=== PATIENT | female | born 1945 | race Two or more races ===

== ENCOUNTER → 2016-10-27 | Outpatient (REF) | payer MEDICARE ==
[~2016-10-27] MED LIST: ATEN25TA PO; GLYB5TA PO; HYDR25TAB PO; LISI-538 PO; METF500T PO; VITA100066 PO
[2016-10-27 19:13] LABS: ALBUMIN 3.5 GM/DL (3.2-5.2); ALBUMIN/GLOBULIN RATIO 1.13 (1.00-1.93); BILIRUBIN,TOTAL 1.5 MG/DL (0.2-1.0); CALCIUM LEVEL 8.6 MG/DL (8.8-10.2); CREATININE FOR GFR 1.13 MG/DL (0.55-1.02); GLOMERULAR FILTRATION RATE 50.7 (>39); POTASSIUM SERUM 4.8 MEQ/L (3.5-5.1); TOTAL PROTEIN 6.6 GM/DL (6.4-8.2)
== END ==
LOC: M LAB REF 18:26
PROVIDERS: ATTEND Emergency Medicine
DX: E78.2 Mixed hyperlipidemia (principal); E55.9 Vitamin D deficiency, unspecified; I10 Essential (primary) hypertension; E11.9 Type 2 diabetes mellitus without complications

== ENCOUNTER → 2017-05-16 | Outpatient (REF) | payer MEDICARE ==
[~2017-05-16] MED LIST changes: -METF500T PO; +METF500T13 PO
[2017-05-16 20:59] LABS: MEAN CORPUSCULAR HEMOGLOBIN 30.7 pg (27.0-33.0); MEAN CORPUSCULAR VOLUME 87.6 fl (80.0-96.0); RED CELL DISTRIBUTION WIDTH 12.6 % (11.5-14.5); WHITE BLOOD COUNT 6.2 10^3/uL (4.0-10.0)
[2017-05-16 21:18] LABS: ERYTHROCYTE SEDIMENTATION RATE 21 mm/hr (0-30)
[2017-05-16 21:38] LABS: PLATELET COUNT, AUTOMATED 81 10^3/uL (150-450)
[2017-05-16 21:39] LABS: IMMATURE PLATELET FRACTION % 11.2 % (0.0-9.6)
== END ==
LOC: M LAB REF 17:49
PROVIDERS: ATTEND Surgery
DX: D04.4 Carcinoma in situ of skin of scalp and neck (principal); D23.72 Other benign neoplasm of skin of left lower limb, including hip; I87.312 Chronic venous hypertension (idiopathic) with ulcer of left lower extremity; L97.822 Non-pressure chronic ulcer of other part of left lower leg with fat layer exposed; Z79.4 Long term (current) use of insulin; Z79.899 Other long term (current) drug therapy

== ENCOUNTER → 2017-11-16 | Outpatient (REF) | payer MEDICARE ==
[2017-11-16 12:29] LABS: BASO % 0.7 % (0.0-1.0); EOS # 0.3 10^3/uL (0.0-0.50); EOS % 5.7 % (0.0-3.0); HEMATOCRIT 39.4 % (36.0-47.0); HEMOGLOBIN 13.9 g/dl (12.0-15.5); IMMATURE GRANULOCYTE % 0.4 % (0-3.0); LYMPH # 1.3 10^3/uL (1.5-4.5); LYMPH % 24.5 % (24.0-44.0); MEAN CORPUSCULAR HEMOGLOBIN 30.6 pg (27.0-33.0); MEAN CORPUSCULAR HGB CONC 35.3 g/dl (32.0-36.5); MEAN CORPUSCULAR VOLUME 86.8 fl (80.0-96.0); MONO # 0.4 10^3/uL (0.0-0.8); MONO % 7.7 % (0.0-5.0); NEUTROPHILS # 3.3 10^3/uL (1.8-7.7); RED BLOOD COUNT 4.54 10^6/uL (4.00-5.40); RED CELL DISTRIBUTION WIDTH 12.3 % (11.5-14.5); WHITE BLOOD COUNT 5.4 10^3/uL (4.0-10.0)
[2017-11-16 12:32] LABS: IMMATURE PLATELET FRACTION % 11.5 % (0.0-9.6); PLATELET COUNT, AUTOMATED 71 10^3/uL (150-450)
[2017-11-16 12:57] LABS: TOTAL 25(OH) VITAMIN D 30.9 NG/ML (30.0-100.0)
[2017-11-16 13:03] LABS: ALBUMIN 3.7 GM/DL (3.2-5.2); ALBUMIN/GLOBULIN RATIO 1.09 (1.00-1.93); ALKALINE PHOSPHATASE 226 U/L (45-117); ALT/SGPT 35 U/L (12-78); ANION GAP 8 MEQ/L (8-16); AST/SGOT 25 U/L (7-37); BILIRUBIN,TOTAL 1.2 MG/DL (0.2-1.0); BLOOD UREA NITROGEN 22 MG/DL (7-18); CARBON DIOXIDE LEVEL 28 MEQ/L (21-32); CHLORIDE LEVEL 101 MEQ/L (98-107); CHOLESTEROL LEVEL 114 MG/DL (<200); CHOLESTEROL RISK RATIO 4.384 (<5); CREATININE FOR GFR 1.29 MG/DL (0.55-1.30); FREE T4 1.27 NG/DL (0.76-1.46); GLOMERULAR FILTRATION RATE 43.2 (>39); GLUCOSE, FASTING 342 MG/DL (70-100); HDL CHOLESTEROL 26 MG/DL (>40); LDL CHOLESTEROL 41.6 MG/DL (<100); NON-HDL-C 88 MG/DL; POTASSIUM SERUM 4.3 MEQ/L (3.5-5.1); SODIUM LEVEL 137 MEQ/L (136-145); TOTAL PROTEIN 7.1 GM/DL (6.4-8.2); TRIGLYCERIDES LEVEL 232 MG/DL (<150)
[2017-11-16 13:31] LABS: MALB URINE SIEMENS 53.1 MG/L; MAU/CREAT RATIO 53.1 MCG/MG (0.0-30.0)
[2017-11-16 14:08] LABS: ESTIMATED AVERAGE GLUCOSE 318 MG/DL (60-110); HEMOGLOBIN A1c 12.7 %
== END ==
LOC: M SFHCADAM 08:07
DX: N18.3 Chronic kidney disease, stage 3 (moderate) (principal); E78.1 Pure hyperglyceridemia; E11.22 Type 2 diabetes mellitus with diabetic chronic kidney disease
CPT/HCPCS: 84443

== ENCOUNTER → 2018-03-13 | Outpatient (CLI) | payer MEDICARE | LOC: M ADAMS 11:00 | DX: M79.671 Pain in right foot (principal) | CPT/HCPCS: 73630 ==

== ENCOUNTER → 2018-07-19 | Outpatient (CLI) | payer MEDICARE ==
--- NOTE | 2018-07-19 20:39 | REP ---
Clinical: Chronic renal disease. Technique: Real time small scale ultrasound examination using curved array transducer. Findings: Bilateral kidneys are normal in contour, size, echogenicity, and reniform shape out hydronephrosis, nephrolithiasis, cystic or renal mass lesion. Right kidney measures 10.7 x 4.6 x 3.6 cm. Left kidney measures 10.4 x 3.8 x 4.1 cm. Bladder is incompletely distended and grossly normal in appearance. Incidental images of the liver demonstrate heterogeneous echotexture with small scattered hypoechoic mass lesions, ascites, and mildly enlarged spleen. Impression: 1. Normal appearance to the kidneys. 2. Incidental upper abdominal findings including subtle hypoechoic mass lesions within the liver, trace ascites, and splenomegaly. Electronically Signed by Koby Chris MD 07/19/2018 08:31 P
== END ==
LOC: M RAD 12:07
PROVIDERS: ATTEND Physician Assistant Medical
DX: N18.3 Chronic kidney disease, stage 3 (moderate) (principal); K76.9 Liver disease, unspecified; R18.8 Other ascites; R16.1 Splenomegaly, not elsewhere classified

== ENCOUNTER 2018-07-28 20:30 | Observation (INO) | payer MEDICARE ==
[~2018-07-28] VITALS: Ht 154.9 cm; Wt 63.6 kg
[2018-07-28 21:17] LABS: BASO % 0.7 % (0.0-1.0); EOS # 0.4 10^3/uL (0.0-0.50); EOS % 6.2 % (0.0-3.0); HEMATOCRIT 41.8 % (36.0-47.0); LYMPH # 1.4 10^3/uL (1.5-4.5); LYMPH % 23.8 % (24.0-44.0); MEAN CORPUSCULAR HEMOGLOBIN 30.7 pg (27.0-33.0); MEAN CORPUSCULAR HGB CONC 35.9 g/dl (32.0-36.5); MEAN CORPUSCULAR VOLUME 85.7 fl (80.0-96.0); MONO # 0.5 10^3/uL (0.0-0.8); MONO % 8.8 % (0.0-5.0); NEUTROPHILS # 3.6 10^3/uL (1.8-7.7); NEUTROPHILS % 60.2 % (36.0-66.0); RED BLOOD COUNT 4.88 10^6/uL (4.00-5.40)
[2018-07-28 21:19] LABS: PLATELET COUNT, AUTOMATED 70 10^3/uL (150-450)
[2018-07-28] MEDS ORDERED: BASA100I SC (21:23)
[2018-07-28] MEDS ORDERED: ATEN100T PO (21:23)
[2018-07-28] MEDS ORDERED: VITA1CAP25 PO (21:23)
[2018-07-28] MEDS ORDERED: METF500T13 PO (21:23)
[2018-07-28] MEDS ORDERED: GLIP10TA6 PO (21:23)
[2018-07-28] MEDS ORDERED: LISI20TA PO (21:23)
[2018-07-28] MEDS ORDERED: hydrALAZINE INJ 20 MG/ML VIAL IV ONE (21:45)
[2018-07-28 21:46] LABS: BLOOD UREA NITROGEN 22 MG/DL (7-18); CALCIUM LEVEL 8.7 MG/DL (8.8-10.2); CARBON DIOXIDE LEVEL 25 MEQ/L (21-32); CHLORIDE LEVEL 99 MEQ/L (98-107); CPK CREATINE PHOSPHOKINASE 103 U/L (26-192); CREATININE FOR GFR 1.21 MG/DL (0.55-1.30); GLOMERULAR FILTRATION RATE 46.6 (>39); GLUCOSE, FASTING 298 MG/DL (70-100); MB/CK RELATIVE INDEX 2.23 (< OR =4); POTASSIUM SERUM 4.4 MEQ/L (3.5-5.1); SODIUM LEVEL 135 MEQ/L (136-145); TROPONIN I < 0.02 NG/ML (< 0.10)
[2018-07-28] MEDS ORDERED: GLUCAGON FOR INJ 1 MG VIAL (J1610) SC PRN (23:00)
[2018-07-28] MEDS ORDERED: NS 500 ML IV SCH (23:00)
[2018-07-28] MEDS ORDERED: GLUCOSE 4 GM CHEW TABLET PO PRN (23:00)
[2018-07-28] MEDS ORDERED: DEXTROSE 50% 50 ML SYRINGE IV PRN (23:00)
[2018-07-28] MEDS ORDERED: amLODIPine 5 MG TAB PO SCH (23:00)
[2018-07-28 23:28] LABS: HEMOGLOBIN A1c 12.5 %
[2018-07-28] MEDS: LEVEMIR (INSULIN DETEMIR) 1 UNITS/0.01ML SC SCH (23:59)
--- NOTE | 2018-07-29 00:04 | HPE ---
DATE OF ADMISSION: 07/28/2018 CHIEF COMPLAINT: Episodic palpitations, worsening over the past 2 weeks. HISTORY OF THE PRESENT ILLNESS: The patient is a 72-year-old female. She has a significant past medical history of diabetes, insulin-dependent diabetes, hypertension, chronic kidney disease stage III. She states that she was recently diagnosed with a liver lesion. She has had chronic thrombocytopenia for some time. States that she was scheduled to have an ultrasound of the liver upcoming. She presented to the emergency room with episodic palpitations over the past several months. She states they have been more pronounced and worsened. One episode she had 2 weeks, which was more pronounced, lasted for several hours and one episode tonight. The palpitations are not associated with exertion or rest. They can happen spontaneously at rest. They resolve on their own. She is not able to pinpoint any triggers, relieving or exacerbating factors. She denies shortness of breath. She denies chest pain. She denies cough, fevers, chills, abdominal pain, constipation, diarrhea. She denies any skin changes, temperature intolerance, changes in her hair, changes in her weight, no diarrhea. Notably in the patient's history, about a month and a half ago she discontinued her medications. She neglected to refill all her medications. She states 2 weeks ago when the palpitations started getting worse, she reached out to her primary care provider. Dr. Campo, who is also in the same group, subsequently called her medication into the pharmacy. The patient states she has been taking her medications for the past 2 weeks, and she has been compliant. However, today, again, she experienced palpitations. Her exercise tolerance, she says, is unchanged. She is able to ambulate without any limitations. She denies any orthopnea. There is no paroxysmal nocturnal dyspnea (PND). No peripheral edema. She does have uncontrolled hypertension; blood pressure was 203 systolic on presentation to the emergency room. She states it is always high at home, though she endorses compliance with her medications over the past 2 weeks. Her glucose on the BMP is also 298, again she states she is compliant with her diabetic medication. In the ER, she was noted to have a left bundle branch block. No prior EKG for comparison. She was noted to be hypertensive, 203 systolic. She was given hydralazine push with improvement in her blood pressure. PAST MEDICAL HISTORY: See history of the present illness. PAST SURGICAL HISTORY: She had carpal tunnel syndrome, hysterectomy. HOME MEDICATIONS: Atenolol, lisinopril, hydrochlorothiazide, glipizide, metformin, vitamin D, Basaglar 10 units. SOCIAL HISTORY: Former smoker. Denies alcohol or illicit drug use. REVIEW OF SYSTEMS: A 12-point review of systems was completed, all of which were negative except those listed in the history of the present illness. ALLERGIES: No known drug allergies. FAMILY HISTORY: Noncontributory. VITAL ON ADMISSION: Temperature 98, pulse is 76, respirations are 16. Initial blood pressure 203/84, saturating at 97% on room air. After a push of hydralazine, blood pressure is now in the 160s over 70s. PHYSICAL EXAM: General: She is well nourished, in no apparent distress. Head is normocephalic, atraumatic Eyes: Extraocular movements are intact. Pupils equal, round, reactive to light. Neck is supple. No jugular venous pressure (JVP). Lungs: Clear to auscultation. No crackles, wheezes, rales, or rhonchi. Cardiovascular: Regular rate and rhythm. Normal S1, S2. No murmurs, gallops, or rubs. Abdomen: Soft, nontender, nondistended. Positive bowel sounds. No rebound, no guarding. Extremities: No pitting edema or calf tenderness. Skin: Intact. No rashes, lesions, or breakdown. Neurological: Alert and oriented times three. No focal deficits. LABS AND IMAGING: White count of 6, hemoglobin and hematocrit of 15 over 41, platelet count of 70. She does have a history of thrombocytopenia. The patient states that she does also have a liver lesion which she was recently told about. BMP shows a potassium of 4, BUN and creatinine of 21 over 1.21. Baseline creatinine of 1. Troponin is negative. EKG shows a left bundle branch block. No prior EKG for comparison. Chest x-ray is unremarkable. ASSESSMENT AND PLAN: Palpitations, possibly secondary to hyperglycemia and possibly dehydration. Will rule out pulmonary embolism (PE). Will rule out thyroid dysfunction. Will keep the patient on telemetry to assess for any arrhythmia. Will re-cycle the troponins. Will repeat the EKG. Will get an echocardiogram to assess for structural heart disease. She also has a left bundle branch block, which all intents and purposes is a new left bundle branch block, but there are no prior EKGs for comparison. However, initial troponin was negative. For hypertensive urgency, she was given 5 mg of hydralazine in the emergency room. Will continue her home medications, adjust as necessary. Vital signs as per protocol. Echocardiogram to be obtained to assess for structural heart disease. For thrombocytopenia, the patient has no history of alcohol abuse. There is no recent infection to suggest that this is infectious mediated or medication mediated. She states that she was recently told by her primary care provider (PCP) that has a mass on the liver, and she was scheduled for an outpatient followup ultrasound. I am unclear as to how she discerned there was a mass on the liver, but will get a right upper quadrant ultrasound, will get liver function tests (LFTs) and will continue to trend platelet count and the liver function test if it is noted to be abnormal. Diabetes. Will send an A1c. Will hold oral hypoglycemics. Will place on sliding scale. Will continue a long-acting insulin. SUPPORTIVE: - Deep vein thrombosis (DVT) prophylaxis. Sequential compression devices (SCDs). - Gastrointestinal (GI) prophylaxis. Not indicated. - Diet: Cardiac, diabetic diet.
[2018-07-29 00:23] LABS: ALBUMIN 3.8 GM/DL (3.2-5.2); ALT/SGPT 35 U/L (12-78); BILIRUBIN,DIRECT 0.2 MG/DL (0.0-0.2); MAGNESIUM LEVEL 1.6 MG/DL (1.8-2.4); TOTAL PROTEIN 7.3 GM/DL (6.4-8.2)
[2018-07-29 03:22] LABS: HEMOGLOBIN 13.3 g/dl (12.0-15.5); MEAN CORPUSCULAR HEMOGLOBIN 30.6 pg (27.0-33.0); MEAN CORPUSCULAR HGB CONC 35.9 g/dl (32.0-36.5); MEAN CORPUSCULAR VOLUME 85.1 fl (80.0-96.0); RED BLOOD COUNT 4.35 10^6/uL (4.00-5.40); WHITE BLOOD COUNT 6.3 10^3/uL (4.0-10.0)
[2018-07-29 03:26] LABS: PLATELET COUNT, AUTOMATED 54 10^3/uL (150-450)
[2018-07-29 03:46] LABS: CALCIUM LEVEL 8.4 MG/DL (8.8-10.2); CREATININE FOR GFR 1.09 MG/DL (0.55-1.30); FREE T4 1.21 NG/DL (0.76-1.46); GLOMERULAR FILTRATION RATE 52.5 (>39); THYROID STIMULATING HORMONE 3.27 uIU/ML (0.358-3.740)
[2018-07-29] MEDS ORDERED: HEPARIN SOD (PORCINE) 5000 UNITS/ML VIAL SC SCH (06:00)
--- NOTE | 2018-07-29 07:25 | ECGEPIP ---
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
[2018-07-29] MEDS ORDERED: CALCIUM GLUCONATE 1,000 MG in D5W MINI-BAG PLUS 100 ML IV ONE (08:00)
--- NOTE | 2018-07-29 08:11 | REP ---
CHEST PA AND LATERAL: 07/28/2018. Clinical history: Chest pain. Findings: There are no prior studies. Two-views show the lung barragan well inflated. There is no pleural effusion or lateral pleural thickening. I see no apical pneumothorax and no pneumomediastinum. Some subtle infrahilar density on the right may reflect some subsegmental atelectasis or early infiltrate. I see no dense consolidation with air bronchograms. No pulmonary nodules or parenchymal mass is evident. Heart is not enlarged. Aorta and airway intact. There is no vascular redistribution. Bony thorax shows no compression deformity, although there are degenerative changes throughout the mid and lower thoracic spine. No free air under the diaphragm. Impression: 1. Subtle increased patchy density infrahilar right lower lung zone. No dense consolidation, effusion, pulmonary nodule or parenchymal mass. 2. Heart not enlarged. There is no vascular redistribution or edema. Aorta and airway intact. 3. Some degenerative changes in the spine without acute compression deformity or destructive lesion. There are old healed and remodeled left lateral rib fractures of the seventh and eighth ribs. Electronically Signed by Raymundo Esparza MD 07/29/2018 09:28 A
--- NOTE | 2018-07-29 08:19 | REP ---
HEPATIC ULTRASOUND: 07/28/2018. Comparison: 03/23/2012. Clinical history: Low platelet count. Findings: The liver shows diffuse coarsening of echotexture with lobulated contours and somewhat hyperechoic appearance overall consistent with fatty infiltration and chronic liver disease. No intrahepatic biliary dilatation, hepatic mass, cyst or perihepatic ascites. Gallbladder shows normal wall thickness and no stone, sludge or pericholecystic fluid. No sonographic Vazquez sign. Common duct is 4.9 mm without filling defect. Pancreas is limited in evaluation due to extensive gas shadowing. Small portions seen were grossly unremarkable. Right kidney is 10.9 x 5.5 x 4 cm and without hydronephrosis or stone. Impression: 1. Findings suggest chronic liver disease with diffuse coarsened echotexture, overall increased echogenicity consistent with some fatty infiltration and lobulated hepatic contours with slightly prominent left hepatic lobe. No cyst or solid mass. 2. No intrahepatic biliary dilatation, the common duct 4.9 mm, normal. 3. Gallbladder without stone, mass, wall thickening or pericholecystic fluid. No sonographic Vazquez sign. 4. Only limited visualization of pancreas. Right kidney without acute finding. Electronically Signed by Raymundo Esparza MD 07/29/2018 09:29 A
[2018-07-29] MEDS: HumaLOG INSULIN (NovoLOG) PER UNIT SC SCH ×3 (08:22→17:22)
[2018-07-29] MEDS: LISINOPRIL 40 MG TAB PO SCH (08:23)
[2018-07-29] MEDS: ATENOLOL 50 MG TAB PO SCH (08:23)
[2018-07-29] MEDS: hydroCHLOROthiazide 25 MG TAB PO SCH (08:23)
[2018-07-29 13:55] VITALS: BP 177/81
--- NOTE | 2018-07-29 17:51 | ECHO ---
DATE OF PROCEDURE: 07/29/2018 HEIGHT: 154 cm WEIGHT: 64 kg REFERRING PHYSICIAN: Dr. Stahl Tuesday INDICATION: Abnormal ECG. 2D MEASUREMENTS: Aortic annulus: 1.8 cm Aortic root: 2.9 cm Left atrium: 4.3 cm Ventricular septum: 0.99 cm Posterior wall: 0.97 cm Left ventricle diastole: 5.1 cm Left atrial volume index: 39.8 Inferior vena cava: 1.8 cm DOPPLER MEASUREMENTS: Aortic valve velocity: 98.1 cm/s LVOT velocity: 92.5 cm/s LVOT VTI: 24.9 cm Mitral E velocity: 89.7 cm/s Mitral A velocity: 127 cm/s Mitral deceleration time: 296 ms Very mild tricuspid regurgitation. Estimated right ventricle systolic pressure: 30 mmHg assuming a pressure of 5 mmHg. Pulmonary artery systolic pressure: 21 mmHg. MITRAL ANNULAR TISSUE DOPPLER: E prime septal: 3.6 cm/s E prime lateral: 6.0 cm/s DESCRIPTION: Rhythm was sinus. Image quality was fair. No pericardial effusion. Some PVCs. CONCLUSIONS: 1. Normal left ventricle internal dimensions and wall thickness. Normal regional left ventricular (LV) wall motion and wall thickening. Normal LV systolic function. Left ventricular ejection fraction (LVEF) 65-70% by visual estimate. Grade 1 LV diastolic dysfunction. 2. Moderate left atrial dilatation. 3. Moderate aortic valve sclerosis of a 3-cusp aortic valve. No aortic stenosis or regurgitation. 4. Moderate mitral annular calcification. No mitral stenosis or mitral regurgitation. 5. Otherwise normal appearing echocardiogram Doppler findings.
[2018-07-29] MEDS: metFORMIN (GLUCOPHAGE) 1000 MG TABLET PO SCH (18:17)
--- NOTE | 2018-07-29 19:33 | ECGEPIP ---
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
[2018-07-29 22:00] VITALS: BP 128/65
[2018-07-29] MEDS: LEVEMIR (INSULIN DETEMIR) 1 UNITS/0.01ML SC SCH (22:44)
[2018-07-30 02:00] VITALS: BP 117/57
[2018-07-30 06:00] VITALS: BP 136/65
[2018-07-30 07:00] LABS: HEMATOCRIT 38.9 % (36.0-47.0); HEMOGLOBIN 13.7 g/dl (12.0-15.5); MEAN CORPUSCULAR HEMOGLOBIN 30.6 pg (27.0-33.0); MEAN CORPUSCULAR HGB CONC 35.2 g/dl (32.0-36.5); RED BLOOD COUNT 4.47 10^6/uL (4.00-5.40); WHITE BLOOD COUNT 6.3 10^3/uL (4.0-10.0)
[2018-07-30 07:06] LABS: PLATELET COUNT, AUTOMATED 69 10^3/uL (150-450)
[2018-07-30 07:13] LABS: CALCIUM LEVEL 9.2 MG/DL (8.8-10.2); CREATININE FOR GFR 1.08 MG/DL (0.55-1.30); GLOMERULAR FILTRATION RATE 53.1 (>39); POTASSIUM SERUM 3.9 MEQ/L (3.5-5.1)
[2018-07-30] MEDS ORDERED: glipiZIDE XL 5 MG TABCR PO SCH (07:30)
--- NOTE | 2018-07-30 08:57 | IPN ---
DATE OF VISIT: 07/29/2018 This patient was admitted last night by the hospitalist. She presented to the hospital because of pressure in her chest and pounding palpitations. She is not really short of breath. She was anxious. Was not coughing or having any flu-like symptoms. She is a diabetic. She is hypertensive. She was off her medications for several months because she did not feel like renewing them. Her last office visit prior to 2 weeks ago was in November, at which time her physician wished her to go on an insulin product because her diabetes was uncontrolled with a hemoglobin A1c of 12.7%. However, her insurance would not cover treat Chris. She was somewhat lost to followup for the next 7 months. She reports that this week or less than 2 weeks ago, she restarted her atenolol, her glipizide, her metformin but only at 1000 mg once a day, and her glipizide, her lisinopril, hydrochlorothiazide. So it is a little bit surprising that her blood pressure was in the 200s last night when she got admitted. At this time, she is feeling better, chest pressure is gone. She is currently receiving atenolol 100 mg once a day, lisinopril 40 mg once a day, hydrochlorothiazide 25 mg once a day. She is getting lispro insulin sliding scale and Levemir insulin 10 units at bedtime. On examination, her current blood pressure is 177/81 (it had been 151/71), pulse is 63 and regular, respirations 18, oxygen (O2) saturation is 97% on room air. She is alert, oriented, pleasant, cooperative, not in any distress. Her eyes are clear. No facial weakness. Speech is clear. Lungs are clear. Heart: Has a regular rhythm without any murmur, click, or gallop. Abdomen is soft and nontender without any masses or organomegaly. Bowel sounds are active. There is no edema. Her current hemoglobin is 13.3, WBC is 6300. Her BUN is 24, creatinine 1.09. Sodium 140, potassium 4.0. Her troponin went from less than 0.02 to 0.038 to 0.02. She had a TSH done last night that was 4.89; this morning, it was 3.27. She had a hemoglobin A1c which was 12.5%, similar to what was obtained last summer. ASSESSMENT: 1. Diabetes, poorly controlled. 2. Hypertension, better controlled. 3. Pounding palpitations. PLAN: The patient will be placed on her medication regimen similar to what she was taking at home. I would like her to be on twice a day 1000 mg metformin, as well as sulfonylurea, in addition to the Basaglar or Lantus insulin. Continue her current blood pressure medication regimen. I think if things are stable or no worse than they have been at home recently, I think she could be discharged tomorrow for followup. She indicates that she will start the insulin product when she gets home. ADELFO
[2018-07-30] MEDS: HumaLOG INSULIN (NovoLOG) PER UNIT SC SCH ×2 (09:03→12:45)
[2018-07-30] MEDS: metFORMIN (GLUCOPHAGE) 1000 MG TABLET PO SCH (09:03)
[2018-07-30] MEDS: LISINOPRIL 40 MG TAB PO SCH (09:04)
[2018-07-30] MEDS: hydroCHLOROthiazide 25 MG TAB PO SCH (09:04)
[2018-07-30 09:05] VITALS: BP 136/65
[2018-07-30] MEDS: ATENOLOL 50 MG TAB PO SCH (09:05)
--- NOTE | 2018-08-01 11:32 | DSES ---
DATE OF ADMISSION: 07/28/2018 DATE OF DISCHARGE: 07/30/2018 DIAGNOSES: 1. Palpitations. 2. Left bundle branch for uncertain age. 3. Diabetes mellitus, poor control. 4. Hypertension. 5. Ultrasound findings consistent with lobulated fatty liver. BRIEF HISTORY AND PHYSICAL: This is a 72-year-old woman who had stopped her diabetic and hypertensive medicines several months ago and only restarted them 2 weeks ago. She felt she was having some palpitations and that they were worsening and that is why she came to the emergency department. In the emergency room, she had left bundle March block of uncertain origin or uncertain duration as there are no prior EKGs. Her blood pressure was 203 systolic. She received some hydralazine. Her blood sugar was 298 at the time. On examination, she really was not in any distress. Her initial vitals showed temperature 98, pulse 76 and regular, respirations 16, blood pressure 203/84, oxygen saturation 97%. LABORATORY DATA: She had white blood cells ranging from 6752-4577, hemoglobin ranging from 15.3-15, platelet count from 54,000-70,000. She has known problems with thrombocytopenia. Initial sodium was 135, subsequently 140 and 139. BUN ranged from 22-24, creatinine 1.08-1.21. Glucoses ranged from 120-305 in the facility. EKG showed regular sinus rhythm with left bundle branch block. Chest x-ray showed what was read as a subtle increased patchy density in the right lower lung zone. She had no pulmonary symptoms, however. Heart was not enlarged or degenerative changes in the spine. Liver ultrasound showed chronic liver disease with diffuse coarse and echotexture with some fatty infiltration. No lobulated hepatic contours. Slightly prominent left hepatic lobe. No cyst or solid mass. No intrahepatic biliary dilatation. Gallbladder was unremarkable. COURSE IN THE FACILITY: The patient was admitted to the hospital for observation, particularly in view of palpitations and a left bundle branch block of uncertain age. She was continued on metformin, atenolol, lisinopril, and hydrochlorothiazide in her home doses. She reported that she was only taking the metformin once a day at home. She was started on Basaglar one dose on the night of her admission. Subsequently was restarted on glipizide and Basaglar was held the following night as her blood sugar was 149 and she expressed here that she was going to get hypoglycemic. She was doing well. Next day felt well. No longer having any chest pains or pressure. At the time of her discharge, she was looking well. Temperature was 97.3, pulse was 68 and regular, blood pressure 136/65, respirations 20. Her blood pressure on the morning of her discharge was 197, although as mentioned it had been 149 on her basic profile that morning. We had a long talk about following a diet and taking her medications as prescribed. Apparently this has been discussed with her at her most recent visit and she has an appointment tomorrow receive the physician lead recreation assistant. So her discharge medications are going to be: - glipizide 10 mg once daily in the morning - metformin 1000 mg twice a day - atenolol 100 mg once a day - lisinopril/hydrochlorothiazide 20/12.5 mg 2 tablets daily - vitamin D 50,000 units every 2 weeks I instructed her to not start the Basaglar. I think we need to get a better idea of what her sugar pattern is. We do know that her sugars have been under poor control recently. I think that is more of a function of not having taken medicine for several months and back in November she relates this related more to not following a diet.
== END 2018-07-30 14:40 | disposition home or self-care (01) ==
LOC: M ED 20:30 → M ED INP 23:00 → M MSPAV 07-29 14:02
PROVIDERS: ADMIT Internal Medicine; ATTEND Family Medicine
DX: E11.65 Type 2 diabetes mellitus with hyperglycemia (principal); R00.2 Palpitations; R07.9 Chest pain, unspecified; N18.3 Chronic kidney disease, stage 3 (moderate); I12.9 Hypertensive chronic kidney disease with stage 1 through stage 4 chronic kidney disease, or unspecified chronic kidney disease; F41.9 Anxiety disorder, unspecified; Z79.4 Long term (current) use of insulin; Z79.899 Other long term (current) drug therapy; D69.6 Thrombocytopenia, unspecified
CPT/HCPCS: 36415; 71046; 76705; 80048; 80076; 82550; 82553; 83036; 83735; 84439; 84443; 84484; 85025; 85027; 85049; 85055; 85379; 93005; 93041; 93306; 94760; 96361; 96374; 99285; G0378; J0610

== ENCOUNTER 2018-10-31 08:44 | Emergency (ER) | payer OTHER, MEDICARE ==
[~2018-10-31] VITALS: Ht 154.9 cm; Wt 64.7 kg
[~2018-10-31 08:44] MED LIST changes: +ATEN100T PO; +BASA100I SC; +GLIP10TA6 PO; +GLYB-147 PO; -GLYB5TA PO; +HYDR-2541 PO; -HYDR25TAB PO; +LISI20TA PO; +VITA1CAP25 PO
[2018-10-31] MEDS ORDERED: SIMV20TA2 (08:55)
[2018-10-31] MEDS ORDERED: atenelol (08:55)
[2018-10-31 09:48] VITALS: BP 198/86
--- NOTE | 2018-10-31 10:20 | REP ---
LEFT WRIST, FOUR VIEWS: Four views of the left wrist performed. There is a nondisplaced fracture of the distal radius. This is intra-articular. No other fracture or dislocation is seen. Electronically Signed by Farhan Travis MD 11/01/2018 09:02 A
--- NOTE | 2018-10-31 10:22 | REP ---
LEFT HAND SERIES: Four views of the left hand are performed. There is a nondisplaced fracture of the distal radius extending into the radial carpal joint. No other acute fracture or dislocation is seen. There is narrowing between the scaphoid and trapezoid bones as well as between the trapezium and base of first metacarpal. There is mild diffuse narrowing of the interphalangeal joints. IMPRESSION: Nondisplaced intraarticular fracture, distal radius. Electronically Signed by Farhan Travis MD 11/01/2018 09:03 A
== END 2018-10-31 10:30 | disposition home or self-care (01) ==
LOC: M ED 08:44
DX: S52.572A Other intraarticular fracture of lower end of left radius, initial encounter for closed fracture (principal); W01.10XA Fall on same level from slipping, tripping and stumbling with subsequent striking against unspecified object, initial encounter; Y92.9 Unspecified place or not applicable; Y93.H9 Activity, other involving exterior property and land maintenance, building and construction; Y99.0 Civilian activity done for income or pay; I10 Essential (primary) hypertension; E11.9 Type 2 diabetes mellitus without complications; E78.5 Hyperlipidemia, unspecified; K21.9 Gastro-esophageal reflux disease without esophagitis; K57.10 Diverticulosis of small intestine without perforation or abscess without bleeding; M54.5 Low back pain; Z79.84 Long term (current) use of oral hypoglycemic drugs; Z79.899 Other long term (current) drug therapy; Z88.8 Allergy status to other drugs, medicaments and biological substances

== ENCOUNTER → 2018-11-21 | Outpatient (REF) | payer MEDICARE ==
[~2018-11-21] MED LIST changes: +SIMV20TA2; +atenelol
[2018-11-21 13:09] LABS: BASO % 0.9 % (0.0-1.0); EOS # 0.3 10^3/uL (0.0-0.50); EOS % 7.2 % (0.0-3.0); HEMATOCRIT 36.4 % (36.0-47.0); HEMOGLOBIN 12.3 g/dl (12.0-15.5); LYMPH # 1.1 10^3/uL (1.5-4.5); LYMPH % 25.3 % (24.0-44.0); MEAN CORPUSCULAR HEMOGLOBIN 30.8 pg (27.0-33.0); MEAN CORPUSCULAR HGB CONC 33.8 g/dl (32.0-36.5); MONO # 0.3 10^3/uL (0.0-0.8); MONO % 6.9 % (0.0-5.0); NEUTROPHILS # 2.7 10^3/uL (1.8-7.7); NEUTROPHILS % 59.5 % (36.0-66.0); WHITE BLOOD COUNT 4.5 10^3/uL (4.0-10.0)
[2018-11-21 13:52] LABS: PLATELET COUNT, AUTOMATED 75 10^3/uL (150-450)
[2018-11-21 14:20] LABS: ALBUMIN 3.9 GM/DL (3.2-5.2); CALCIUM LEVEL 9.4 MG/DL (8.8-10.2); CHOLESTEROL RISK RATIO 2.242 (<5); CREATININE FOR GFR 1.15 MG/DL (0.55-1.30); GLOMERULAR FILTRATION RATE 49.2 (>39); POTASSIUM SERUM 4.2 MEQ/L (3.5-5.1); THYROID STIMULATING HORMONE 1.83 uIU/ML (0.358-3.740); TOTAL PROTEIN 7.1 GM/DL (6.4-8.2)
[2018-11-21 15:03] LABS: HEMOGLOBIN A1c 7.2 %
== END ==
LOC: M SFHCADAM 07:54
PROVIDERS: ATTEND Physician Assistant Medical
DX: E11.22 Type 2 diabetes mellitus with diabetic chronic kidney disease (principal); I10 Essential (primary) hypertension

== ENCOUNTER → 2018-12-27 | Outpatient (CLI) | payer MEDICARE ==
--- NOTE | 2018-12-27 10:14 | REP ---
Complete abdominal ultrasound And portal vein Doppler ultrasound : The studies are performed for abnormal liver function tests. Right upper quadrant abdominal ultrasound: There is no cholelithiasis, gallbladder wall thickening or pericholecystic fluid. There is no intrahepatic or extrahepatic biliary duct dilatation. The common duct measures 7.3 ml in diameter. This is normal for patient age. The hepatic parenchyma has a heterogeneous echotexture. The hepatic margin is nodular. These findings are compatible with diffuse hepatocellular disease such as cirrhosis. There are multiple sub centimeter hypoechoic hepatic nodules . This is nonspecific and could represent neoplasm such as metastases or multicentric hepatoma or could be related to diffuse hepatocellular disease. Follow-up hepatic MRI might be considered for further evaluation. The spleen is enlarged measuring 15.6 x 14, 20 x 6.6 cm for splenic index of 1523. The right kidney is normal size measuring 16.3 x 5.3 x 4 one 3 cm. Left kidney is normal size measuring 11.2 x 4.5 x 3.4 cm. There are no renal calculi. There is no hydronephrosis. There are no solid or cystic renal masses. There is no abdominal aortic aneurysm. There is no ascites. Impression: The hepatic parenchyma is heterogeneous and the hepatic margin is nodular. These findings are compatible with diffuse, severe disease such as cirrhosis. There are multiple sub centimeter hypoechoic nodules, nonspecific, metastases versus multicentric hepatoma versus diffuse hepatocellular disease. Splenomegaly. No ascites. Portal vein Doppler ultrasound: The flow velocities in the main portal vein, splenic vein, superior mesenteric vein and intrahepatic portal veins are normal. There is antegrade flow in the portal vein. The hepatic vein waveforms are mildly portalized. This is compatible with diffuse hepatocellular disease. Impression: No evidence of portal hypertension. Electronically Signed by Farhan Roberts MD 12/27/2018 10:05 A
[2018-12-27 10:27] LABS: INR 1.15; PROTHROMBIN TIME 14.4 SECONDS (11.8-14.0)
[2018-12-27 10:47] LABS: ALBUMIN 3.7 GM/DL (3.2-5.2); ALT/SGPT 29 U/L (12-78); BILIRUBIN,DIRECT 0.3 MG/DL (0.0-0.2); BILIRUBIN,TOTAL 0.9 MG/DL (0.2-1.0); GAMMA GLUTAMYLTRANSPEPTIDASE 102 U/L (5-55); IRON (FE) 59 UG/DL (50-170); PERCENT SATURATION 19.4 % (13.2-45.0); TOTAL IRON BINDING CAPACITY 304 UG/DL (250-450); TOTAL PROTEIN 6.9 GM/DL (6.4-8.2)
[2018-12-27 11:36] LABS: HEPATITIS B SURFACE ANTIGEN NEGATIVE (NEGATIVE)
[2018-12-27 12:25] LABS: HEPATITIS A ANTIBODY IGM NEGATIVE (NEGATIVE); HEPATITIS B CORE ANTIBODY IGM NEGATIVE (NEGATIVE); HEPATITIS C VIRUS ABY INDEX 0.1 INDEX (<0.8)
[2019-01-02 00:06] LABS: ANCA-ATYPICAL 1:20 titer (Neg:<1:20); ANTI-MITOCHONDRIAL ANTIBODY <20.0 Units (0.0-20.0); ANTINUCLEAR ANTIBODIES DIRECT Negative (Negative); CYTOPLASMIC NEUTROP AB ANCA-C <1:20 titer (Neg:<1:20); LIVER-KIDNEY MICROSOMAL ABY <20.1 Units (0.0-20.0); PERINUCLEAR AB ANCA-P <1:20 titer (Neg:<1:20); TISSUE TRANSGLUTAMINASE IgA <2 U/mL (0-3)
== END ==
LOC: M RAD 08:07
PROVIDERS: ATTEND Internal Medicine Gastroenterology
DX: R93.2 Abnormal findings on diagnostic imaging of liver and biliary tract (principal); R94.5 Abnormal results of liver function studies; K76.9 Liver disease, unspecified

== ENCOUNTER → 2019-02-19 | Outpatient (REF) | payer MEDICARE ==
[~2019-02-19] MED LIST changes: -LISI20TA PO; +LISI20TA19 PO
[2019-02-19 14:42] LABS: CREATININE FOR GFR 1.09 MG/DL (0.55-1.30); GLOMERULAR FILTRATION RATE 52.4 (>39)
== END ==
LOC: M LABDRWAD 12:48
PROVIDERS: ATTEND Internal Medicine Gastroenterology
DX: R93.2 Abnormal findings on diagnostic imaging of liver and biliary tract (principal)

== ENCOUNTER → 2019-02-27 | Outpatient (CLI) | payer MEDICARE ==
[~2019-02-27] MED LIST changes: +PROHANCE 279.3MG/ML 15ML VIAL (A9576) As Ordered ONE; -SIMV20TA2; +SIMV20TA22
--- NOTE | 2019-02-27 09:24 | REP ---
MRI ABDOMEN WITH AND WITHOUT CONTRAST: TECHNIQUE: Multiple sequences obtained in the axial and coronal planes prior to and following the intravenous administration of 6 mL ProHance. Correlation is made with ultrasound 12/27/2018, which showed multiple subcentimeter nodules throughout the liver. The liver demonstrates a micronodular contour diffusely with diffuse somewhat heterogeneous signal. Innumerable tiny hypointense subcentimeter nodules are seen diffusely. These do not enhance. The findings are compatible with cirrhosis with tiny regenerating nodules diffusely. No suspicious enhancing mass is seen. Length of the liver is 17.3 cm. There is significant splenomegaly, length of the spleen is 16 cm. A benign 6 mm cyst is seen along the lateral margin of the spleen. Adrenals are normal. Pancreas demonstrates no mass. There is no pancreatic duct dilatation. There is no gallbladder wall thickening. There is no biliary dilatation. Common bile duct has a maximum diameter of 5 mm. Subcentimeter cyst is seen in the upper pole of the right kidney. In the mid left kidney medially, there is a cyst measuring 1.2 cm in diameter. No significant adenopathy is seen in the abdomen. There is no ascites. IMPRESSION: The liver has a cirrhotic appearance. Multiple tiny subcentimeter hypointense nodules throughout the liver do not demonstrate suspicious enhancement, with no suspicious enhancing mass. Findings are compatible with multiple tiny regenerating nodules throughout the cirrhotic liver. Splenomegaly, length of the spleen is 16 cm. No ascites. Electronically Signed by Farhan Travis MD 02/28/2019 10:04 A
== END ==
LOC: M RAD 07:09
PROVIDERS: ATTEND Internal Medicine Gastroenterology
DX: R93.2 Abnormal findings on diagnostic imaging of liver and biliary tract (principal)
CPT/HCPCS: 74183; A9576

== ENCOUNTER → 2019-03-13 | Outpatient (REF) | payer MEDICARE ==
[~2019-03-13] MED LIST changes: -PROHANCE 279.3MG/ML 15ML VIAL (A9576) As Ordered ONE; +SIMV20TA2; -SIMV20TA22
[2019-03-13 20:12] LABS: BASO % 0.8 % (0.0-1.0); EOS # 0.4 10^3/uL (0.0-0.5); HEMOGLOBIN 12.2 g/dl (12.0-15.5); LYMPH % 21.5 % (24.0-44.0); MEAN CORPUSCULAR HGB CONC 33.9 g/dl (32.0-36.5); MEAN CORPUSCULAR VOLUME 91.4 fl (80.0-96.0); MONO # 0.4 10^3/uL (0.0-0.8); MONO % 8.1 % (0.0-5.0); NEUTROPHILS # 2.9 10^3/uL (1.5-8.5); NEUTROPHILS % 60.4 % (36.0-66.0); RED BLOOD COUNT 3.94 10^6/uL (4.00-5.40); WHITE BLOOD COUNT 4.8 10^3/uL (4.0-10.0)
[2019-03-13 20:26] LABS: INR 1.13; PROTHROMBIN TIME 14.2 SECONDS (11.8-14.0)
[2019-03-13 20:59] LABS: PLATELET COUNT, AUTOMATED 77 10^3/uL (150-450)
== END ==
LOC: M LABDRWAD 19:20
PROVIDERS: ATTEND Internal Medicine Gastroenterology
DX: K74.60 Unspecified cirrhosis of liver (principal)

== ENCOUNTER → 2019-03-16 | Outpatient (CLI) | payer MEDICARE ==
--- NOTE | 2019-03-16 17:14 | REP ---
RIGHT LOWER EXTREMITY DUPLEX DOPPLER ARTERIAL ULTRASOUND: Real-time ultrasound evaluation and duplex Doppler interrogation of right lower extremity arterial system is performed. TOMASA is not performed due to open ulcer and bandaging material. Minimal scattered plaquing is seen throughout the right lower extremity arterial system. Diffusely biphasic and triphasic waveforms are seen. There is no duplex Doppler sonographic evidence of hemodynamically significant stenosis. Normal flow velocities are seen diffusely. RIGHT PSV RING CUTTER LATHE OPERATOR 114 cm/s Profunda 67.5 cm/s Proximal SFA 119 cm/s Mid SFA 122 cm/s Distal SFA 125 cm/s Popliteal 79.1 cm/s Proximal MATTHEW 54.9 cm/s Tibial peritoneal trunk 94.1 cm/s Proximal CABLEWAY OPERATOR 60.9 cm/s Distal CABLEWAY OPERATOR 117 cm/s Distal MATTHEW 74.1 cm/s IMPRESSION: Minimal scattered plaquing without evidence of hemodialysis significant stenosis of the right lower extremity arterial system. Electronically Signed by Farhan Travis MD 03/19/2019 05:01 P
== END ==
LOC: M RAD 14:55
PROVIDERS: ATTEND Surgery
DX: I87.331 Chronic venous hypertension (idiopathic) with ulcer and inflammation of right lower extremity (principal); I70.238 Atherosclerosis of native arteries of right leg with ulceration of other part of lower leg; L97.919 Non-pressure chronic ulcer of unspecified part of right lower leg with unspecified severity

== ENCOUNTER → 2019-03-27 | Outpatient (REF) | payer MEDICARE ==
[2019-03-27 13:05] LABS: ALBUMIN 3.6 GM/DL (3.2-5.2); BILIRUBIN,TOTAL 1.1 MG/DL (0.2-1.0); CALCIUM LEVEL 10.2 MG/DL (8.8-10.2); CHOLESTEROL RISK RATIO 2.303 (<5); CREATININE FOR GFR 1.1 MG/DL (0.55-1.30); GLOMERULAR FILTRATION RATE 51.8 (>39); MAGNESIUM LEVEL 1.2 MG/DL (1.8-2.4); POTASSIUM SERUM 4.2 MEQ/L (3.5-5.1); TOTAL PROTEIN 6.7 GM/DL (6.4-8.2)
[2019-03-27 13:08] LABS: BASO % 0.8 % (0.0-1.0); EOS # 0.2 10^3/uL (0.0-0.5); EOS % 6.3 % (0.0-3.0); HEMOGLOBIN 12.1 g/dl (12.0-15.5); LYMPH # 0.9 10^3/uL (1.5-5.0); LYMPH % 22.8 % (24.0-44.0); MEAN CORPUSCULAR HGB CONC 34.6 g/dl (32.0-36.5); MEAN CORPUSCULAR VOLUME 89.7 fl (80.0-96.0); MONO # 0.4 10^3/uL (0.0-0.8); MONO % 9.2 % (0.0-5.0); NEUTROPHILS # 2.3 10^3/uL (1.5-8.5); NEUTROPHILS % 60.6 % (36.0-66.0); WHITE BLOOD COUNT 3.8 10^3/uL (4.0-10.0)
[2019-03-27 13:09] LABS: PLATELET COUNT, AUTOMATED 59 10^3/uL (150-450)
[2019-03-27 13:12] LABS: TOTAL 25(OH) VITAMIN D 76.6 NG/ML (30.0-100.0)
[2019-03-27 14:23] LABS: HEMOGLOBIN A1c 8.1 %
[2019-03-28 13:49] LABS: CREATININE, URINE 62.9 MG/DL; MALB URINE SIEMENS 37.3 MG/L; MAU/CREAT RATIO 59.3 MCG/MG (0.0-30.0)
== END ==
LOC: M SFHCADAM 09:02
PROVIDERS: ATTEND Physician Assistant Medical
DX: E11.22 Type 2 diabetes mellitus with diabetic chronic kidney disease (principal); N18.3 Chronic kidney disease, stage 3 (moderate); I10 Essential (primary) hypertension

== ENCOUNTER → 2019-03-28 | Outpatient (CLI) | payer MEDICARE ==
[~2019-03-28] MED LIST changes: +ACETAMINOPHEN 325 MG TAB As Ordered ONE; +LIDOCAINE 1% MDV 20ML VIAL As Ordered ONE
[2019-03-28 11:15] VITALS: BP 207/86
--- NOTE | 2019-03-28 13:49 | REP ---
ULTRASOUND-GUIDED LIVER BIOPSY The procedure was performed under the direct supervision of Dr. Pastor. The risks and benefits of the procedure were explained to the patient and informed consent was obtained. The left lobe of the liver was localized using ultrasound guidance. The skin was prepped and draped in a sterile fashion. 1% lidocaine was used as a local anesthetic. Using ultrasound guidance a 19/20 gauge coaxial needle biopsy system was inserted and advanced into the liver. Five core biopsy samples were obtained and sent to lab. The patient tolerated the procedure well and there were no immediate complications. After the appropriate amount of monitored convalescence the patient was discharged from the department. Electronically Signed by IMMANUEL Bryan 03/28/2019 11:21 A Electronically Signed by Eduardo Pastor MD 03/28/2019 01:40 P
== END ==
LOC: M IRPRO 08:30
PROVIDERS: ATTEND Internal Medicine Gastroenterology
DX: K74.69 Other cirrhosis of liver (principal); K76.0 Fatty (change of) liver, not elsewhere classified

== ENCOUNTER → 2019-04-03 | Outpatient (REF) | payer MEDICARE ==
[~2019-04-03] MED LIST changes: -ACETAMINOPHEN 325 MG TAB As Ordered ONE; -LIDOCAINE 1% MDV 20ML VIAL As Ordered ONE
== END ==
LOC: M LABDRWAD 15:52 → M SFHCADAM 15:52
PROVIDERS: ATTEND Physician Assistant Medical
DX: E83.42 Hypomagnesemia (principal)

== ENCOUNTER → 2019-08-03 | Outpatient (REF) | payer MEDICARE ==
[~2019-08-03] MED LIST changes: -SIMV20TA2; +SIMV20TA22
[2019-08-03 15:08] LABS: BASO % 0.7 % (0.0-1.0); EOS # 0.3 10^3/uL (0.0-0.5); EOS % 6.7 % (0.0-3.0); HEMATOCRIT 37.2 % (36.0-47.0); HEMOGLOBIN 12.3 g/dl (12.0-15.5); LYMPH % 22.4 % (24.0-44.0); MEAN CORPUSCULAR HEMOGLOBIN 29.6 pg (27.0-33.0); MEAN CORPUSCULAR HGB CONC 33.1 g/dl (32.0-36.5); MEAN CORPUSCULAR VOLUME 89.4 fl (80.0-96.0); MONO # 0.5 10^3/uL (0.0-0.8); MONO % 10.3 % (0.0-5.0); NEUTROPHILS # 2.7 10^3/uL (1.5-8.5); NEUTROPHILS % 59.5 % (36.0-66.0); RED BLOOD COUNT 4.16 10^6/uL (4.00-5.40); WHITE BLOOD COUNT 4.5 10^3/uL (4.0-10.0)
[2019-08-03 15:10] LABS: PLATELET COUNT, AUTOMATED 64 10^3/uL (150-450)
[2019-08-03 15:25] LABS: ALBUMIN 3.8 GM/DL (3.2-5.2); CHOLESTEROL RISK RATIO 2.607 (<5); CREATININE FOR GFR 1.07 MG/DL (0.55-1.30); GLOMERULAR FILTRATION RATE 53.5 (>39); MAGNESIUM LEVEL 1.8 MG/DL (1.8-2.4); POTASSIUM SERUM 4.2 MEQ/L (3.5-5.1); TOTAL PROTEIN 6.9 GM/DL (6.4-8.2)
== END ==
LOC: M SFHCADAM 07:52
PROVIDERS: ATTEND Physician Assistant Medical
DX: N18.3 Chronic kidney disease, stage 3 (moderate) (principal); E78.1 Pure hyperglyceridemia; E11.22 Type 2 diabetes mellitus with diabetic chronic kidney disease; E83.42 Hypomagnesemia

== ENCOUNTER → 2019-08-07 | Outpatient (REF) | payer MEDICARE ==
[2019-08-07 13:18] LABS: HEMOGLOBIN A1c 8.6 %
== END ==
LOC: M SFHCADAM 07:59
PROVIDERS: ATTEND Physician Assistant Medical
DX: E11.22 Type 2 diabetes mellitus with diabetic chronic kidney disease (principal)
CPT/HCPCS: 83036; G0463

== ENCOUNTER → 2019-08-21 | Outpatient (REF) | payer MEDICARE ==
[2019-08-21 16:46] LABS: CREATININE FOR GFR 1.21 MG/DL (0.55-1.30); GLOMERULAR FILTRATION RATE 46.4 (>39); MAGNESIUM LEVEL 1.8 MG/DL (1.8-2.4); POTASSIUM SERUM 4.4 MEQ/L (3.5-5.1)
== END ==
LOC: M SFHCPLAZ 13:51
PROVIDERS: ATTEND Physician Assistant Medical
DX: R19.7 Diarrhea, unspecified (principal)

== ENCOUNTER → 2019-10-01 | Outpatient (CLI) | payer MEDICARE ==
--- NOTE | 2019-10-02 05:55 | REP ---
Clinical: History of hepatic fibrosis/cirrhosis. Technique: Real time small scale ultrasound examination using curved array transducer. Comparison: 12/27/2018 Findings: Liver demonstrates heterogeneous parenchymal echotexture subtle nodular contour. Small scattered primarily subcentimeter hypoechoic nodules with the largest nodule measuring 1.2 cm maximal diameter in the anterior right lobe are again noted and similar to prior examination. Visualized pancreas is unremarkable. Gallbladder is normal and without gallstones, wall thickening, or pericholecystic fluid. No biliary ductal dilatation is appreciated and the common bile duct measures 5.5 mm diameter. The right kidney is normal in reniform shape without hydronephrosis and measures 9.5 x 5.7 x 4.3 cm. No ascites. Impression: Underlying hepatocellular disease similar to prior examination with small hypoechoic nodules measuring up to 1.2 cm. Electronically Signed by Koby Chris MD 10/02/2019 05:47 A
== END ==
LOC: M RAD 07:42
PROVIDERS: ATTEND Internal Medicine Gastroenterology
DX: K74.0 Hepatic fibrosis (principal)

== ENCOUNTER 2020-01-08 07:16 | Day surgery (SDC) | payer MEDICARE ==
[~2020-01-08] VITALS: Ht 154.9 cm; Wt 63.5 kg
[~2020-01-08 07:16] MED LIST changes: +VITAD1000T PO
[2020-01-08] MEDS ORDERED: LIDOCAINE 2% 100MG/5ML SDV (FOR ANES.) As Ordered ONE (08:03)
[2020-01-08] MEDS ORDERED: propofoL 200 MG/20 ML VIAL As Ordered ONE (08:03)
== END 2020-01-08 08:50 | disposition home or self-care (01) ==
LOC: M OPP 07:16
PROVIDERS: ATTEND Internal Medicine Gastroenterology
DX: R19.7 Diarrhea, unspecified (principal); D12.2 Benign neoplasm of ascending colon; I10 Essential (primary) hypertension; E11.9 Type 2 diabetes mellitus without complications; Z88.8 Allergy status to other drugs, medicaments and biological substances; K57.92 Diverticulitis of intestine, part unspecified, without perforation or abscess without bleeding; Z87.891 Personal history of nicotine dependence; Z79.84 Long term (current) use of oral hypoglycemic drugs; Z79.899 Other long term (current) drug therapy

== ENCOUNTER → 2021-03-27 | Outpatient (REF) | payer MEDICARE ==
[~2021-03-27] MED LIST changes: +D31000TA2 PO; -LISI-538 PO; -LISI20TA19 PO; +LISI20TA33 PO; +LISI20TA35 PO; -VITAD1000T PO
[2021-03-27 16:33] LABS: ALBUMIN 3.6 GM/DL (3.2-5.2); BILIRUBIN,TOTAL 0.9 MG/DL (0.2-1.0); CALCIUM LEVEL 9.9 MG/DL (8.8-10.2); CHOLESTEROL RISK RATIO 2.444 (<5); CREATININE FOR GFR 1.26 MG/DL (0.55-1.30); GLOMERULAR FILTRATION RATE 44.1 (>39); MAGNESIUM LEVEL 1.6 MG/DL (1.8-2.4); POTASSIUM SERUM 4.3 MEQ/L (3.5-5.1); THYROID STIMULATING HORMONE 1.52 uIU/ML (0.358-3.740); TOTAL PROTEIN 6.8 GM/DL (6.4-8.2)
[2021-03-27 16:53] LABS: HEMOGLOBIN A1c 7.3 %
[2021-03-27 16:59] LABS: CREATININE, URINE 38.5 MG/DL; MAU/CREAT RATIO 1155.8 MCG/MG (0.0-30.0)
== END ==
LOC: M SFHCADAM 09:53
PROVIDERS: ATTEND Physician Assistant Medical
DX: E11.22 Type 2 diabetes mellitus with diabetic chronic kidney disease (principal); I10 Essential (primary) hypertension; E78.1 Pure hyperglyceridemia

== ENCOUNTER → 2021-09-24 | Outpatient (REF) | payer MEDICARE ==
[~2021-09-24] MED LIST changes: -D31000TA2 PO; +VITA100093 PO
[2021-09-24 13:32] LABS: BASO % 0.8 % (0.0-1.0); EOS # 0.3 10^3/uL (0.0-0.5); EOS % 8.1 % (0.0-3.0); HEMATOCRIT 33.5 % (36.0-47.0); HEMOGLOBIN 11.6 g/dl (12.0-15.5); LYMPH % 24.1 % (24.0-44.0); MEAN CORPUSCULAR HEMOGLOBIN 30.5 pg (27.0-33.0); MEAN CORPUSCULAR HGB CONC 34.6 g/dl (32.0-36.5); MEAN CORPUSCULAR VOLUME 88.2 fl (80.0-96.0); MONO # 0.4 10^3/uL (0.0-0.8); MONO % 10.1 % (2.0-8.0); NEUTROPHILS # 2.2 10^3/uL (1.5-8.5); NEUTROPHILS % 56.6 % (36.0-66.0)
[2021-09-24 14:07] LABS: ALBUMIN 3.3 GM/DL (3.2-5.2); BILIRUBIN,TOTAL 1.1 MG/DL (0.2-1.0); CALCIUM LEVEL 10.1 MG/DL (8.8-10.2); CHOLESTEROL RISK RATIO 2.625 (<5); CREATININE FOR GFR 1.02 MG/DL (0.55-1.30); GLOMERULAR FILTRATION RATE 56.2 (>39); THYROID STIMULATING HORMONE 2.69 uIU/ML (0.358-3.740); TOTAL PROTEIN 6.2 GM/DL (6.4-8.2)
[2021-09-24 14:18] LABS: PLATELET COUNT, AUTOMATED 56 10^3/uL (150-450)
[2021-09-24 14:36] LABS: HEMOGLOBIN A1c 8.1 %
== END ==
LOC: M SFHCPLAZ 07:49
PROVIDERS: ATTEND Physician Assistant Medical
DX: E11.22 Type 2 diabetes mellitus with diabetic chronic kidney disease (principal); E78.1 Pure hyperglyceridemia; R80.1 Persistent proteinuria, unspecified; E55.9 Vitamin D deficiency, unspecified

== ENCOUNTER → 2021-10-14 | Outpatient (CLI) | payer MEDICARE | LOC: M WHC 08:37 | PROVIDERS: ATTEND Physician Assistant Medical | DX: K74.60 Unspecified cirrhosis of liver (principal) ==

== ENCOUNTER 2021-10-22 10:41 | Emergency (ER) | payer MEDICARE ==
[~2021-10-22] VITALS: Ht 154.9 cm; Wt 64.5 kg
[2021-10-22] MEDS ORDERED: HYDR-3910 PO (11:39)
[2021-10-22] MEDS ORDERED: GLIP5TAB8 PO (11:39)
[2021-10-22] MEDS ORDERED: METF10004 PO (11:39)
[2021-10-22] MEDS ORDERED: hydrALAZINE 20MG/ML 1ML VIAL (J0360 PER 20MG) IV ONE (12:15)
[2021-10-22 12:59] VITALS: BP 230/96
[2021-10-22 13:02] LABS: BASO % 0.7 % (0.0-1.0); EOS # 0.3 10^3/uL (0.0-0.5); EOS % 5.4 % (0.0-3.0); HEMATOCRIT 32.6 % (36.0-47.0); HEMOGLOBIN 11.1 g/dl (12.0-15.5); LYMPH # 0.9 10^3/uL (1.5-5.0); LYMPH % 16.3 % (24.0-44.0); MEAN CORPUSCULAR HEMOGLOBIN 29.9 pg (27.0-33.0); MEAN CORPUSCULAR VOLUME 87.9 fl (80.0-96.0); MONO # 0.5 10^3/uL (0.0-0.8); MONO % 8.5 % (2.0-8.0); NEUTROPHILS % 68.8 % (36.0-66.0); RED BLOOD COUNT 3.71 10^6/uL (4.00-5.40); WHITE BLOOD COUNT 5.8 10^3/uL (4.0-10.0)
[2021-10-22 13:04] LABS: PLATELET COUNT, AUTOMATED 54 10^3/uL (150-450)
[2021-10-22 13:31] LABS: ALBUMIN 3.4 GM/DL (3.2-5.2); BILIRUBIN,DIRECT 0.4 MG/DL (0.0-0.2); BILIRUBIN,TOTAL 1.4 MG/DL (0.2-1.0); CALCIUM LEVEL 10.6 MG/DL (8.8-10.2); CREATININE FOR GFR 1.15 MG/DL (0.55-1.30); FREE T4 1.14 NG/DL (0.76-1.46); POTASSIUM SERUM 4.1 MEQ/L (3.5-5.1); THYROID STIMULATING HORMONE 2.51 uIU/ML (0.358-3.740); TOTAL PROTEIN 6.7 GM/DL (6.4-8.2)
[2021-10-22 13:37] LABS: RSV AMPLIFICATION NEGATIVE (NEGATIVE)
[2021-10-22] MEDS ORDERED: HYDR-3911 PO (15:09)
[2021-10-22 15:29] VITALS: BP 165/72
== END 2021-10-22 16:06 | disposition home or self-care (01) ==
LOC: M ED 10:41
DX: I10 Essential (primary) hypertension (principal); R94.31 Abnormal electrocardiogram [ECG] [EKG]; K21.9 Gastro-esophageal reflux disease without esophagitis; M54.50 Low back pain, unspecified; N18.30 Chronic kidney disease, stage 3 unspecified; Z87.891 Personal history of nicotine dependence; Z88.8 Allergy status to other drugs, medicaments and biological substances; Z79.84 Long term (current) use of oral hypoglycemic drugs; Z79.899 Other long term (current) drug therapy
CPT/HCPCS: 71045; 80048; 80076; 82550; 83690; 83880; 84439; 84443; 84484; 85025; 85049; 85055; 87631; 93005; 93041; 94760; 96374; 99285; J0360

== ENCOUNTER → 2022-04-06 | Outpatient (REF) | payer MEDICARE ==
[~2022-04-06] MED LIST changes: +GLIP5TAB8 PO; +HYDR-3910 PO; +HYDR-3911 PO; +METF10004 PO
[2022-04-06 19:10] LABS: ALBUMIN 3.5 GM/DL (3.2-5.2); BILIRUBIN,TOTAL 0.9 MG/DL (0.2-1.0); CALCIUM LEVEL 9.6 MG/DL (8.8-10.2); CHOLESTEROL RISK RATIO 2.323 (<5); CREATININE FOR GFR 1.61 MG/DL (0.55-1.30); GLOMERULAR FILTRATION RATE 33.1 (>39); POTASSIUM SERUM 4.7 MEQ/L (3.5-5.1); TOTAL PROTEIN 6.4 GM/DL (6.4-8.2)
[2022-04-06 20:01] LABS: TOTAL 25(OH) VITAMIN D 45.4 NG/ML (30.0-100.0)
== END ==
LOC: M SFHCADAM 08:03
PROVIDERS: ATTEND Physician Assistant Medical
DX: E11.22 Type 2 diabetes mellitus with diabetic chronic kidney disease (principal); I10 Essential (primary) hypertension; E78.1 Pure hyperglyceridemia; E55.9 Vitamin D deficiency, unspecified; K74.60 Unspecified cirrhosis of liver

== ENCOUNTER → 2022-04-13 | Outpatient (REF) | payer MEDICARE ==
[2022-04-13 15:02] LABS: CALCIUM LEVEL 10.5 MG/DL (8.8-10.2); CREATININE FOR GFR 1.45 MG/DL (0.55-1.30); GLOMERULAR FILTRATION RATE 37.4 (>39); POTASSIUM SERUM 4.5 MEQ/L (3.5-5.1)
== END ==
LOC: M SFHCADAM 09:30
PROVIDERS: ATTEND Physician Assistant Medical
DX: N17.9 Acute kidney failure, unspecified (principal)

== ENCOUNTER 2022-10-06 00:06 | Observation (INO) | payer MEDICARE ==
[~2022-10-06] VITALS: Ht 154.9 cm; Wt 66.4 kg
[2022-10-06 00:48] LABS: BASO % 0.5 % (0.0-1.0); EOS # 0.2 10^3/uL (0.0-0.5); EOS % 3.4 % (0.0-3.0); HEMATOCRIT 30.6 % (36.0-47.0); HEMOGLOBIN 10.6 g/dl (12.0-15.5); LYMPH # 0.7 10^3/uL (1.5-5.0); LYMPH % 14.7 % (24.0-44.0); MEAN CORPUSCULAR HEMOGLOBIN 29.9 pg (27.0-33.0); MEAN CORPUSCULAR HGB CONC 34.6 g/dl (32.0-36.5); MEAN CORPUSCULAR VOLUME 86.2 fl (80.0-96.0); MONO # 0.3 10^3/uL (0.0-0.8); MONO % 6.3 % (2.0-8.0); NEUTROPHILS # 3.3 10^3/uL (1.5-8.5); NEUTROPHILS % 74.6 % (36.0-66.0); PLATELET COUNT, AUTOMATED 47 10^3/uL (150-450); RED BLOOD COUNT 3.55 10^6/uL (4.00-5.40); WHITE BLOOD COUNT 4.4 10^3/uL (4.0-10.0)
[2022-10-06 01:16] LABS: ALBUMIN 3.4 G/DL (3.2-5.2); CALCIUM LEVEL 10.6 MG/DL (8.3-10.6); CREATININE FOR GFR 1.32 MG/DL (0.55-1.30); GLOMERULAR FILTRATION RATE 41.7 (>39); TOTAL PROTEIN 6.6 G/DL (5.7-8.2)
[2022-10-06 01:18] LABS: THYROID STIMULATING HORMONE 2.549 uIU/ML (0.55-4.78)
[2022-10-06] MEDS ORDERED: METF500T13 PO (01:41)
[2022-10-06] MEDS ORDERED: hydrALAZINE 20MG/ML 1ML VIAL IV ONE (02:15)
[2022-10-06] MEDS ORDERED: NS 1,000 ML IV ONE (02:15)
[2022-10-06 02:37] LABS: MAGNESIUM LEVEL 1.5 MG/DL (1.8-2.4)
[2022-10-06] MEDS ORDERED: MAG SULF 1GM/100ML (MAG RUN) 1 GM in IV 1 EA IV ONE (02:50)
[2022-10-06] MEDS ORDERED: CALCIUM CARBONATE 500 MG CHEW U/D PO ONE (03:15)
[2022-10-06] MEDS ORDERED: hydroCHLOROthiazide 12.5 MG CAPSULE PO ONE (04:05)
[2022-10-06] MEDS ORDERED: **hydrALAZINE** 50 MG TAB PO ONE (04:05)
[2022-10-06] MEDS ORDERED: AMLO2.5T3 PO (06:41)
[2022-10-06] MEDS ORDERED: VIAC1CHW PO (06:41)
[2022-10-06] MEDS ORDERED: GLIP5TAB8 PO (06:41)
[2022-10-06] MEDS ORDERED: HYDR-3911 PO (06:41)
[2022-10-06] MEDS ORDERED: SIMV20TA22 PO (06:41)
[2022-10-06] MEDS ORDERED: HOME MED LIST COMPLETE! XX SCH (06:45)
[2022-10-06] MEDS ORDERED: GLUCAGON INJ 1MG VIAL SC PRN (08:10)
[2022-10-06] MEDS ORDERED: DEXTROSE 50% 50ML SYRINGE IV PRN (08:10)
[2022-10-06] MEDS ORDERED: ACETAMINOPHEN TAB 650MG DOSE (2X325MG) PO PRN (08:10)
[2022-10-06] MEDS ORDERED: GLUCOSE 4GM CHEW TABLET PO PRN (08:10)
[2022-10-06] MEDS ORDERED: MOM 30ML SUSPENSION UDC PO PRN (08:10)
[2022-10-06] MEDS ORDERED: DOCUSATE SODIUM 100MG CAPSULE PO SCH (09:00)
[2022-10-06] MEDS ORDERED: VITAMIN D 1,000 INTERNATIONAL UNITS TABLET PO SCH (09:00)
[2022-10-06] MEDS ORDERED: CHLORTHALIDONE 25 MG TAB PO SCH (09:00)
[2022-10-06 09:15] LABS: INR 1.14; PROTHROMBIN TIME 14.8 SECONDS (12.5-14.5)
[2022-10-06 09:25] LABS: CHOLESTEROL RISK RATIO 2.37 (<5); HDL CHOLESTEROL 34.9 MG/DL (>40); LDL CHOLESTEROL 34.3 MG/DL (<100); MAGNESIUM LEVEL 1.7 MG/DL (1.8-2.4); NON-HDL-C 48.1 MG/DL
[2022-10-06] MEDS: INSULIN LISPRO (NovoLOG) PER UNIT SC SCH ×2 (09:30→12:00)
[2022-10-06 09:31] LABS: HEMOGLOBIN A1c 7.5 % (4.0-6.0)
[2022-10-06 11:15] VITALS: BP 168/90
[2022-10-06 11:20] VITALS: BP_SYST 178; BP_SYST 184; BP_DIAS 74; BP_DIAS 84
[2022-10-06] MEDS ORDERED: AMLO1TAB25 PO (12:11)
[2022-10-06 12:59] VITALS: BP 168/96
[2022-10-06] MEDS ORDERED: RIVAROXABAN 10MG TAB (XARELTO) PO SCH (18:00)
[2022-10-06] MEDS ORDERED: SIMVASTATIN 20 MG TAB PO SCH (21:00)
[2022-10-06] MEDS ORDERED: INSULIN LISPRO (NovoLOG) PER UNIT SC SCH (21:00)
== END 2022-10-06 15:01 | disposition home or self-care (01) ==
LOC: M ED 00:06 → EDBD 00:06 → M ED INP 00:07 → ENRESERV 09:55 → M PCU 10:50
PROVIDERS: ADMIT Student in an Organized Health Care Education/Training Program; ATTEND Student in an Organized Health Care Education/Training Program
DX: I16.0 Hypertensive urgency (principal); E87.20 Acidosis, unspecified; I08.1 Rheumatic disorders of both mitral and tricuspid valves; K74.60 Unspecified cirrhosis of liver; N18.30 Chronic kidney disease, stage 3 unspecified; I44.7 Left bundle-branch block, unspecified; E11.40 Type 2 diabetes mellitus with diabetic neuropathy, unspecified; E78.5 Hyperlipidemia, unspecified; I12.9 Hypertensive chronic kidney disease with stage 1 through stage 4 chronic kidney disease, or unspecified chronic kidney disease; E83.42 Hypomagnesemia; R01.1 Cardiac murmur, unspecified; Z91.199 Patient's noncompliance with other medical treatment and regimen due to unspecified reason; Z88.8 Allergy status to other drugs, medicaments and biological substances; Z79.899 Other long term (current) drug therapy; Z79.84 Long term (current) use of oral hypoglycemic drugs; Z87.891 Personal history of nicotine dependence
CPT/HCPCS: 36415; 71045; 80047; 80053; 80061; 83036; 83605; 83735; 83880; 84443; 84484; 85025; 85049; 85055; 85610; 87486; 87581; 87633; 87798; 93005; 93306; 96365; 96366; 96375; 97116; 97161; 99285; G0378; J0360; J3475

== ENCOUNTER → 2022-11-09 | Outpatient (CLI) | payer MEDICARE ==
[~2022-11-09] MED LIST changes: +AMLO1TAB25 PO; +AMLO2.5T3 PO; +SIMV20TA22 PO; +VIAC1CHW PO
== END ==
LOC: M RAD 09:01
PROVIDERS: ATTEND Physician Assistant Medical
DX: N18.31 Chronic kidney disease, stage 3a (principal)

== ENCOUNTER → 2022-11-11 | Outpatient (REF) | payer MEDICARE ==
[2022-11-11 14:13] LABS: BASO % 0.8 % (0.0-1.0); EOS # 0.3 10^3/uL (0.0-0.5); EOS % 5.3 % (0.0-3.0); HEMATOCRIT 30.2 % (36.0-47.0); HEMOGLOBIN 9.7 g/dl (12.0-15.5); LYMPH # 0.8 10^3/uL (1.5-5.0); LYMPH % 16.6 % (24.0-44.0); MEAN CORPUSCULAR HGB CONC 32.1 g/dl (32.0-36.5); MEAN CORPUSCULAR VOLUME 90.4 fl (80.0-96.0); MONO # 0.5 10^3/uL (0.0-0.8); MONO % 9.3 % (2.0-8.0); NEUTROPHILS # 3.4 10^3/uL (1.5-8.5); NEUTROPHILS % 67.8 % (36.0-66.0); RED BLOOD COUNT 3.34 10^6/uL (4.00-5.40)
[2022-11-11 14:14] LABS: ALBUMIN 3.6 G/DL (3.2-5.2); BILIRUBIN,TOTAL 0.8 MG/DL (0.3-1.2); CALCIUM LEVEL 9.8 MG/DL (8.3-10.6); CHOLESTEROL RISK RATIO 2.26 (<5); CREATININE FOR GFR 1.68 MG/DL (0.55-1.30); GLOMERULAR FILTRATION RATE 31.5 (>39); HDL CHOLESTEROL 34.5 MG/DL (>40); LDL CHOLESTEROL 30.7 MG/DL (<100); MAGNESIUM LEVEL 1.9 MG/DL (1.8-2.4); NON-HDL-C 43.5 MG/DL; POTASSIUM SERUM 4.5 MMOL/L (3.5-5.1); TOTAL PROTEIN 6.5 G/DL (5.7-8.2)
[2022-11-11 14:15] LABS: THYROID STIMULATING HORMONE 2.752 uIU/ML (0.55-4.78)
[2022-11-11 14:16] LABS: TOTAL 25(OH) VITAMIN D 39.4 NG/ML (20.0-100.0)
[2022-11-11 14:19] LABS: PLATELET COUNT, AUTOMATED 76 10^3/uL (150-450)
[2022-11-11 14:21] LABS: HEMOGLOBIN A1c 6.9 % (4.0-6.0)
[2022-11-11 14:43] LABS: CREATININE, URINE 103.7 MG/DL
[2022-11-11 15:01] LABS: MAU/CREAT RATIO 577.6 MCG/MG (0.0-30.0)
== END ==
LOC: M SFHCADAM 08:10
PROVIDERS: ATTEND Physician Assistant Medical
DX: E11.22 Type 2 diabetes mellitus with diabetic chronic kidney disease (principal); E55.9 Vitamin D deficiency, unspecified; K74.60 Unspecified cirrhosis of liver

== ENCOUNTER → 2022-12-17 | Outpatient (CLI) | payer MEDICARE | LOC: M RAD 06:34 | PROVIDERS: ATTEND Physician Assistant Medical | DX: K74.60 Unspecified cirrhosis of liver (principal); R77.2 Abnormality of alphafetoprotein ==

== ENCOUNTER 2023-02-23 08:15 | Observation (INO) | payer MEDICARE ==
[~2023-02-23] VITALS: Ht 154.9 cm; Wt 65.0 kg
[2023-02-23] MEDS ORDERED: NEBI5TAB PO (08:30)
[2023-02-23] MEDS ORDERED: AMLO2.5T3 PO (08:30)
[2023-02-23 08:52] LABS: VENOUS BASE EXCESS -4.8 (-2.0-2.0); VENOUS HCO3 19.4 MMOL/L (23.0-27.0); VENOUS PARTIAL PRESSURE CO2 32.9 mmHg (38.0-50.0); VENOUS PARTIAL PRESSURE O2 76.5 mmHg (30.0-50.0); VENOUS PH 7.388 UNITS (7.330-7.430); VENOUS STANDARD HCO3 20.5 MMOL/L; VENOUS TOTAL CO2 20.4 MMOL/L (24.0-28.0)
[2023-02-23 09:18] LABS: BASO % 0.5 % (0.0-1.0); EOS # 0.1 10^3/uL (0.0-0.5); EOS % 0.8 % (0.0-3.0); HEMATOCRIT 31.1 % (36.0-47.0); HEMOGLOBIN 10.4 g/dl (12.0-15.5); LYMPH # 0.6 10^3/uL (1.5-5.0); LYMPH % 6.6 % (24.0-44.0); MEAN CORPUSCULAR HEMOGLOBIN 29.4 pg (27.0-33.0); MEAN CORPUSCULAR HGB CONC 33.4 g/dl (32.0-36.5); MEAN CORPUSCULAR VOLUME 87.9 fl (80.0-96.0); MONO # 0.5 10^3/uL (0.0-0.8); MONO % 5.6 % (2.0-8.0); NEUTROPHILS # 7.1 10^3/uL (1.5-8.5); NEUTROPHILS % 86.1 % (36.0-66.0); RED BLOOD COUNT 3.54 10^6/uL (4.00-5.40); WHITE BLOOD COUNT 8.3 10^3/uL (4.0-10.0)
[2023-02-23 09:21] LABS: INR 1.3; PROTHROMBIN TIME 15.9 SECONDS (12.5-14.5)
[2023-02-23 09:27] LABS: PLATELET COUNT, AUTOMATED 77 10^3/uL (150-450)
[2023-02-23 09:30] LABS: ALBUMIN 3.7 G/DL (3.2-5.2); BILIRUBIN,DIRECT 0.9 MG/DL (<0.4); BILIRUBIN,TOTAL 2.2 MG/DL (0.3-1.2); CREATININE FOR GFR 1.47 MG/DL (0.55-1.30); GLOMERULAR FILTRATION RATE 36.7 (>39); POTASSIUM SERUM 4.6 MMOL/L (3.5-5.1); THYROID STIMULATING HORMONE 3.315 uIU/ML (0.55-4.78); TOTAL PROTEIN 6.7 G/DL (5.7-8.2)
[2023-02-23] MEDS ORDERED: METOPROLOL TART 25 MG TABLET PO ONE (10:30)
[2023-02-23] MEDS ORDERED: FUROSEMIDE 20MG/2ML VIAL IV ONE ×2 (10:30→21:00)
[2023-02-23] MEDS ORDERED: MED REC IN PROGRESS XX SCH (10:45)
[2023-02-23] MEDS ORDERED: MED REC CURRENTLY UNOBTAINABLE XX SCH (10:45)
[2023-02-23] MEDS ORDERED: GLUCOSE 4GM CHEW TABLET PO PRN (12:20)
[2023-02-23] MEDS ORDERED: HOME MED LIST COMPLETE! XX SCH (12:20)
[2023-02-23] MEDS ORDERED: DEXTROSE 50% 50ML SYRINGE IV PRN (12:20)
[2023-02-23] MEDS ORDERED: GLUCAGON INJ 1MG VIAL SC PRN (12:20)
[2023-02-23] MEDS: METOPROLOL TART 25 MG TABLET PO SCH ×2 (12:46→20:17)
[2023-02-23] MEDS: VITAMIN D 1,000 INTERNATIONAL UNITS TABLET PO SCH (13:07)
[2023-02-23] MEDS: HEPARIN SOD (PORCINE) 5000UNITS/ML 1ML VIAL/SYRINGE SC SCH ×2 (13:30→22:03)
[2023-02-23] MEDS: INSULIN LISPRO (NovoLOG) PER UNIT SC SCH (17:23)
[2023-02-23 20:00] VITALS: BP 177/85; TEMP 98.8; O2SAT 95
[2023-02-23] MEDS ORDERED: SIMVASTATIN 20 MG TAB PO SCH (21:00)
[2023-02-23] MEDS ORDERED: INSULIN LISPRO (NovoLOG) PER UNIT SC SCH (21:00)
[2023-02-24] VITALS: BP 138/58; TEMP 98.6; O2SAT 95
[2023-02-24 04:00] VITALS: BP 166/71; TEMP 98.6; O2SAT 96
[2023-02-24 05:11] LABS: HEMATOCRIT 28.2 % (36.0-47.0); HEMOGLOBIN 9.4 g/dl (12.0-15.5); MEAN CORPUSCULAR HEMOGLOBIN 29.4 pg (27.0-33.0); MEAN CORPUSCULAR HGB CONC 33.3 g/dl (32.0-36.5); MEAN CORPUSCULAR VOLUME 88.1 fl (80.0-96.0); WHITE BLOOD COUNT 7.6 10^3/uL (4.0-10.0)
[2023-02-24 05:17] LABS: PLATELET COUNT, AUTOMATED 66 10^3/uL (150-450)
[2023-02-24] MEDS: HEPARIN SOD (PORCINE) 5000UNITS/ML 1ML VIAL/SYRINGE SC SCH (05:30)
[2023-02-24 05:33] LABS: CALCIUM LEVEL 9.7 MG/DL (8.3-10.6); CREATININE FOR GFR 1.65 MG/DL (0.55-1.30); GLOMERULAR FILTRATION RATE 32.1 (>39); MAGNESIUM LEVEL 1.8 MG/DL (1.8-2.4); POTASSIUM SERUM 3.8 MMOL/L (3.5-5.1)
[2023-02-24] MEDS ORDERED: FUROSEMIDE 20MG/2ML VIAL IV ONE (06:45)
[2023-02-24 08:00] VITALS: BP 144/58; TEMP 98.4; O2SAT 95
[2023-02-24] MEDS: VITAMIN D 1,000 INTERNATIONAL UNITS TABLET PO SCH (08:41)
[2023-02-24 08:42] VITALS: BP 144/58
[2023-02-24] MEDS: METOPROLOL TART 25 MG TABLET PO SCH (08:42)
[2023-02-24] MEDS ORDERED: METO1TAB87 PO (09:04)
[2023-02-24] MEDS ORDERED: FURO20TA2 PO (09:04)
[2023-02-24 09:19] VITALS: O2SAT 93
[2023-02-24] MEDS: INSULIN LISPRO (NovoLOG) PER UNIT SC SCH ×2 (09:36→12:59)
[2023-02-24] MEDS ORDERED: FARX1TAB3 PO (09:58)
[2023-02-24 12:00] VITALS: TEMP 98.9; O2SAT 93
== END 2023-02-24 13:36 | disposition home or self-care (01) ==
LOC: M ED 08:15 → EDBD 08:15 → M ED INP 08:16 → ENRESERV 19:53 → M PCU 20:00
PROVIDERS: ADMIT Internal Medicine; ATTEND Internal Medicine
DX: I50.30 Unspecified diastolic (congestive) heart failure (principal); R06.01 Orthopnea; I16.0 Hypertensive urgency; I34.2 Nonrheumatic mitral (valve) stenosis; J98.11 Atelectasis; J90 Pleural effusion, not elsewhere classified; E11.22 Type 2 diabetes mellitus with diabetic chronic kidney disease; I13.0 Hypertensive heart and chronic kidney disease with heart failure and stage 1 through stage 4 chronic kidney disease, or unspecified chronic kidney disease; I38 Endocarditis, valve unspecified; N18.31 Chronic kidney disease, stage 3a; K74.60 Unspecified cirrhosis of liver; E11.40 Type 2 diabetes mellitus with diabetic neuropathy, unspecified; K76.0 Fatty (change of) liver, not elsewhere classified; D64.9 Anemia, unspecified; Z91.199 Patient's noncompliance with other medical treatment and regimen due to unspecified reason; Z79.899 Other long term (current) drug therapy; Z79.84 Long term (current) use of oral hypoglycemic drugs; Z88.8 Allergy status to other drugs, medicaments and biological substances; Z87.891 Personal history of nicotine dependence; Z82.49 Family history of ischemic heart disease and other diseases of the circulatory system
CPT/HCPCS: 36415; 71045; 80048; 80076; 82803; 83735; 83880; 84443; 85025; 85027; 85049; 85055; 85610; 87040; 87486; 87581; 87633; 87798; 93005; 93041; 93306; 94760; 96372; 96374; 96376; 99285; G0378; J1815; J1940

== ENCOUNTER → 2023-03-17 | Outpatient (REF) | payer MEDICARE ==
[~2023-03-17] MED LIST changes: +FARX1TAB3 PO; +FURO20TA2 PO; +METO1TAB87 PO; +NEBI5TAB PO
[2023-03-17 14:47] LABS: HEMOGLOBIN A1c 8.3 % (4.0-6.0)
== END ==
LOC: M SFHCADAM 08:53
PROVIDERS: ATTEND Physician Assistant Medical
DX: E11.22 Type 2 diabetes mellitus with diabetic chronic kidney disease (principal)

== ENCOUNTER → 2023-06-16 | Outpatient (REF) | payer MEDICARE, OTHER ==
[~2023-06-16] MED LIST changes: +GLIP5TAB17 PO; -GLIP5TAB8 PO
[2023-06-16 19:29] LABS: TOTAL PROTEIN,RANDOM URINE 7.8 MG/DL (0.0-14.0)
[2023-06-16 19:34] LABS: CREATININE,RANDOM URINE 22.8 MG/DL
== END ==
LOC: M LAB REF 17:19
PROVIDERS: ATTEND Internal Medicine Nephrology
DX: N18.32 Chronic kidney disease, stage 3b (principal)

== ENCOUNTER → 2023-08-24 | Outpatient (REF) | payer OTHER ==
[~2023-08-24] MED LIST changes: -HYDR-3910 PO; -HYDR-3911 PO; +HYDR25TA87 PO; +HYDR50TA46 PO
[2023-08-24 15:52] LABS: ALBUMIN 3.7 G/DL (3.2-5.2); BILIRUBIN,TOTAL 1.4 MG/DL (0.3-1.2); CALCIUM LEVEL 9.8 MG/DL (8.3-10.6); CREATININE FOR GFR 1.53 MG/DL (0.55-1.30); POTASSIUM SERUM 4.4 MMOL/L (3.5-5.1); TOTAL PROTEIN 6.8 G/DL (5.7-8.2)
[2023-08-24 17:05] LABS: HEMOGLOBIN A1c 10.2 % (4.0-6.0)
== END ==
LOC: M SFHCADAM 08:27
PROVIDERS: ATTEND Physician Assistant Medical
DX: E11.22 Type 2 diabetes mellitus with diabetic chronic kidney disease (principal); E83.42 Hypomagnesemia

== ENCOUNTER → 2023-11-23 | Outpatient (REF) | payer OTHER ==
[2023-11-23 12:52] LABS: BASO % 0.9 % (0.0-1.0); EOS # 0.3 10^3/uL (0.0-0.5); EOS % 7.5 % (0.0-3.0); HEMATOCRIT 38.8 % (36.0-47.0); HEMOGLOBIN 12.9 g/dl (12.0-15.5); LYMPH # 1.2 10^3/uL (1.5-5.0); LYMPH % 26.3 % (24.0-44.0); MEAN CORPUSCULAR HGB CONC 33.2 g/dl (32.0-36.5); MEAN CORPUSCULAR VOLUME 90.2 fl (80.0-96.0); MONO # 0.5 10^3/uL (0.0-0.8); NEUTROPHILS # 2.4 10^3/uL (1.5-8.5); NEUTROPHILS % 54.1 % (36.0-66.0); WHITE BLOOD COUNT 4.4 10^3/uL (4.0-10.0)
[2023-11-23 13:00] LABS: PLATELET COUNT, AUTOMATED 48 10^3/uL (150-450)
[2023-11-23 13:02] LABS: INR 1.13; PROTHROMBIN TIME 14.1 SECONDS (12.5-14.5)
[2023-11-23 13:03] LABS: HEMOGLOBIN A1c 8.8 % (4.0-6.0)
[2023-11-23 13:38] LABS: FERRITIN 37.7 NG/ML (7.3-270.7)
[2023-11-23 13:46] LABS: ALBUMIN 3.5 G/DL (3.2-5.2); CALCIUM LEVEL 10.3 MG/DL (8.3-10.6); CHOLESTEROL RISK RATIO 3.15 (<5); CREATININE FOR GFR 1.76 MG/DL (0.55-1.30); GLOMERULAR FILTRATION RATE 29.7 (>39); HDL CHOLESTEROL 28.2 MG/DL (>40); LDL CHOLESTEROL 44.2 MG/DL (<100); NON-HDL-C 60.8 MG/DL; PERCENT SATURATION 14.7 % (13.2-45.0); POTASSIUM SERUM 4.6 MMOL/L (3.5-5.1); TOTAL PROTEIN 6.5 G/DL (5.7-8.2)
== END ==
LOC: M SFHCADAM 08:33
PROVIDERS: ATTEND Physician Assistant Medical
DX: K74.60 Unspecified cirrhosis of liver (principal); N18.32 Chronic kidney disease, stage 3b; I11.9 Hypertensive heart disease without heart failure; D63.8 Anemia in other chronic diseases classified elsewhere

== ENCOUNTER → 2023-12-08 | Outpatient (REF) | payer OTHER | LOC: M SFHCDERM 17:55 | PROVIDERS: ATTEND Physician Assistant | DX: D04.4 Carcinoma in situ of skin of scalp and neck (principal) ==

== ENCOUNTER → 2023-12-29 | Outpatient (REF) | payer OTHER | LOC: M SFHCDERM 17:40 | PROVIDERS: ATTEND Physician Assistant | DX: C44.319 Basal cell carcinoma of skin of other parts of face (principal) ==

== ENCOUNTER → 2024-04-04 | Outpatient (REF) | payer OTHER ==
[~2024-04-04] MED LIST changes: +GLIP10TA15 PO; -GLIP10TA6 PO; -NEBI5TAB PO; +NEBI5TAB2 PO
[2024-04-04 13:07] LABS: BASO % 0.7 % (0.0-1.0); EOS # 0.4 10^3/uL (0.0-0.5); EOS % 7.6 % (0.0-3.0); HEMATOCRIT 39.7 % (36.0-47.0); HEMOGLOBIN 13.6 g/dl (12.0-15.5); LYMPH # 1.1 10^3/uL (1.5-5.0); LYMPH % 19.7 % (24.0-44.0); MEAN CORPUSCULAR HEMOGLOBIN 31.1 pg (27.0-33.0); MEAN CORPUSCULAR HGB CONC 34.3 g/dl (32.0-36.5); MEAN CORPUSCULAR VOLUME 90.6 fl (80.0-96.0); MONO # 0.5 10^3/uL (0.0-0.8); NEUTROPHILS # 3.4 10^3/uL (1.5-8.5); NEUTROPHILS % 62.6 % (36.0-66.0); RED BLOOD COUNT 4.38 10^6/uL (4.00-5.40); WHITE BLOOD COUNT 5.4 10^3/uL (4.0-10.0)
[2024-04-04 13:18] LABS: PLATELET COUNT, AUTOMATED 47 10^3/uL (150-450)
[2024-04-04 14:18] LABS: HEMOGLOBIN A1c 9.2 % (4.0-6.0)
[2024-04-04 17:15] LABS: PERCENT SATURATION 34.1 % (13.2-45.0)
[2024-04-04 17:33] LABS: ALBUMIN 3.9 G/DL (3.2-5.2); BILIRUBIN,DIRECT 0.7 MG/DL (<0.4); BILIRUBIN,TOTAL 1.6 MG/DL (0.3-1.2); CHOLESTEROL RISK RATIO 3.18 (<5); FERRITIN 55.1 NG/ML (7.3-270.7); FOLATE 23.1 NG/ML (>5.4); HDL CHOLESTEROL 28.6 MG/DL (>40); LDL CHOLESTEROL 33.4 MG/DL (<100); NON-HDL-C 62.4 MG/DL; TOTAL PROTEIN 6.9 G/DL (5.7-8.2)
== END ==
LOC: M SFHCADAM 10:48
PROVIDERS: ATTEND Physician Assistant Medical
DX: E11.22 Type 2 diabetes mellitus with diabetic chronic kidney disease (principal); E78.1 Pure hyperglyceridemia; N18.32 Chronic kidney disease, stage 3b; K76.0 Fatty (change of) liver, not elsewhere classified; D63.8 Anemia in other chronic diseases classified elsewhere; K74.60 Unspecified cirrhosis of liver

== ENCOUNTER → 2024-05-09 | Outpatient (CLI) | payer OTHER | LOC: M RAD 09:42 | PROVIDERS: ATTEND Physician Assistant Medical | DX: K76.0 Fatty (change of) liver, not elsewhere classified (principal); K80.20 Calculus of gallbladder without cholecystitis without obstruction ==

== ENCOUNTER → 2024-05-18 | Outpatient (CLI) | payer OTHER ==
[~2024-05-18] MED LIST changes: +BYST1TAB2 PO; +JARD1TAB PO
== END ==
LOC: M ONCR 08:42
PROVIDERS: ATTEND General Practice
DX: C44.42 Squamous cell carcinoma of skin of scalp and neck (principal); Z92.21 Personal history of antineoplastic chemotherapy; Z98.890 Other specified postprocedural states; Z90.710 Acquired absence of both cervix and uterus; Z88.8 Allergy status to other drugs, medicaments and biological substances; Z79.84 Long term (current) use of oral hypoglycemic drugs; Z79.899 Other long term (current) drug therapy

== ENCOUNTER 2024-06-07 09:46 | Outpatient (RCR) | payer OTHER ==
[~2024-06-07 09:46] MED LIST changes: +TRIA1CR80 TOP
== END 2024-06-12 ==
LOC: M ONCR 09:46
PROVIDERS: ATTEND General Practice
DX: Z51.0 Encounter for antineoplastic radiation therapy (principal); C44.42 Squamous cell carcinoma of skin of scalp and neck

== ENCOUNTER → 2024-07-10 | Outpatient (CLI) | payer MEDICAID, MEDICARE, OTHER | LOC: M ONCR 13:04 | PROVIDERS: ATTEND General Practice | DX: C44.42 Squamous cell carcinoma of skin of scalp and neck (principal); Z92.23 Personal history of estrogen therapy; L59.8 Other specified disorders of the skin and subcutaneous tissue related to radiation ==

== ENCOUNTER → 2024-07-25 | Outpatient (CLI) | payer MEDICARE | LOC: M ONCR 09:44 | PROVIDERS: ATTEND General Practice | DX: L98.8 Other specified disorders of the skin and subcutaneous tissue (principal) ==

== ENCOUNTER → 2024-08-06 | Outpatient (REF) | payer MEDICARE ==
[2024-08-06 12:54] LABS: ALBUMIN 3.7 G/DL (3.2-5.2); BILIRUBIN,TOTAL 1.4 MG/DL (0.3-1.2); CALCIUM LEVEL 10.1 MG/DL (8.3-10.6); CHOLESTEROL RISK RATIO 3.38 (<5); CREATININE FOR GFR 2.06 MG/DL (0.55-1.30); GLOMERULAR FILTRATION RATE 24.8 (>39); HDL CHOLESTEROL 28.1 MG/DL (>40); LDL CHOLESTEROL 33.3 MG/DL (<100); NON-HDL-C 66.9 MG/DL; POTASSIUM SERUM 4.5 MMOL/L (3.5-5.1); TOTAL PROTEIN 6.9 G/DL (5.7-8.2)
[2024-08-06 12:55] LABS: BASO # 0.1 10^3/uL (0.0-0.2); BASO % 0.9 % (0.0-1.0); EOS # 0.5 10^3/uL (0.0-0.5); EOS % 8.2 % (0.0-3.0); FREE T4 1.21 NG/DL (0.89-1.76); HEMATOCRIT 40.7 % (36.0-47.0); HEMOGLOBIN 13.6 g/dl (12.0-15.5); LYMPH # 1.4 10^3/uL (1.5-5.0); LYMPH % 22.6 % (24.0-44.0); MEAN CORPUSCULAR HEMOGLOBIN 30.6 pg (27.0-33.0); MEAN CORPUSCULAR HGB CONC 33.4 g/dl (32.0-36.5); MEAN CORPUSCULAR VOLUME 91.7 fl (80.0-96.0); MONO # 0.6 10^3/uL (0.0-0.8); MONO % 9.8 % (2.0-8.0); NEUTROPHILS # 3.7 10^3/uL (1.5-8.5); NEUTROPHILS % 58.3 % (36.0-66.0); RED BLOOD COUNT 4.44 10^6/uL (4.00-5.40); THYROID STIMULATING HORMONE 3.598 uIU/ML (0.55-4.78); WHITE BLOOD COUNT 6.3 10^3/uL (4.0-10.0)
[2024-08-06 12:56] LABS: TOTAL 25(OH) VITAMIN D 52.4 NG/ML (20.0-100.0)
[2024-08-06 13:02] LABS: PLATELET COUNT, AUTOMATED 63 10^3/uL (150-450)
[2024-08-06 13:15] LABS: HEMOGLOBIN A1c 9.9 % (4.0-6.0)
== END ==
LOC: M SFHCADAM 09:19
PROVIDERS: ATTEND Physician Assistant Medical
DX: E11.22 Type 2 diabetes mellitus with diabetic chronic kidney disease (principal); E78.1 Pure hyperglyceridemia; N18.32 Chronic kidney disease, stage 3b; I11.9 Hypertensive heart disease without heart failure; D63.8 Anemia in other chronic diseases classified elsewhere; E55.9 Vitamin D deficiency, unspecified

== ENCOUNTER → 2025-03-25 | Outpatient (CLI) | payer MEDICARE | LOC: M ADAMS 10:30 | PROVIDERS: ATTEND Physician Assistant Medical | DX: M25.511 Pain in right shoulder (principal); M25.512 Pain in left shoulder ==

== ENCOUNTER → 2025-03-28 | Outpatient (CLI) | payer MEDICARE | LOC: M ADAMS 09:09 | PROVIDERS: ATTEND Physician Assistant Medical | DX: M25.561 Pain in right knee (principal); M17.11 Unilateral primary osteoarthritis, right knee ==

== ENCOUNTER → 2025-06-11 | Outpatient (REF) | payer MEDICARE ==
[2025-06-11 13:12] LABS: BASO # 0.0 10^3/uL (0.0-0.2); BASO % 0.7 % (0.0-1.0); EOS # 0.4 10^3/uL (0.0-0.5); EOS % 7.6 % (0.0-3.0); LYMPH # 1.3 10^3/uL (1.5-5.0); LYMPH % 24.0 % (24.0-44.0); MONO # 0.6 10^3/uL (0.0-0.8); MONO % 10.4 % (2.0-8.0); NEUTROPHILS # 3.1 10^3/uL (1.5-8.5); NEUTROPHILS % 57.1 % (36.0-66.0)
[2025-06-11 13:41] LABS: PLATELET COUNT, AUTOMATED 52 10^3/uL (150-450)
[2025-06-11 14:31] LABS: ALT/SGPT 18.0 U/L (7.0-40); AST/SGOT 22.0 U/L (<34); CALCIUM LEVEL 10.7 MG/DL (8.3-10.6); CARBON DIOXIDE LEVEL 25.0 MMOL/L (20-31); CHLORIDE LEVEL 108.0 MMOL/L (98-107); CHOLESTEROL LEVEL 97.0 MG/DL (<200); CHOLESTEROL RISK RATIO 3.8 (<5); CREATININE FOR GFR 1.92 MG/DL (0.55-1.30); FREE T4 1.04 NG/DL (0.89-1.76); GLOMERULAR FILTRATION RATE 26.2 (>39); LDL CHOLESTEROL 43.9 MG/DL (<100); MAGNESIUM LEVEL 2.6 MG/DL (1.8-2.4); NON-HDL-C 71.5 MG/DL; POTASSIUM SERUM 4.9 MMOL/L (3.5-5.1); SODIUM LEVEL 142.0 MMOL/L (136-145); TOTAL 25(OH) VITAMIN D 48.9 NG/ML (20.0-100.0); TRIGLYCERIDES LEVEL 138.0 MG/DL (<150)
[2025-06-11 15:26] LABS: ESTIMATED AVERAGE GLUCOSE 160.0 MG/DL (60-110)
== END ==
LOC: M SFHCADAM 08:57
PROVIDERS: ATTEND Physician Assistant Medical
DX: N18.32 Chronic kidney disease, stage 3b (principal); I11.0 Hypertensive heart disease with heart failure; E83.42 Hypomagnesemia; E11.22 Type 2 diabetes mellitus with diabetic chronic kidney disease